=== PATIENT | female | born 1930 | race Caucasian/White ===

== ENCOUNTER 2016-12-18 19:38 | Emergency (ER) | payer MEDICARE, BC ==
--- NOTE | 2016-12-18 20:44 | ER Document Report ---
ED Medical Screen (RME) - General Chief Complaint: Laceration Stated Complaint: FALL/HEAD WOUND Notes: Patient sustained a couple of lacerations to her left scalp when she fell today. It was an unwitnessed fall, but the patient was able to get up and call her daughter who went over to check on her and said she was acting her usual normal self. She does have a couple of lacerations, one in the left parietal scalp that's about 3 cm long and one about 2 cm long in the left occipital scalp region. Patient is hard of hearing, but otherwise, acting normally for her, per the family. TRAVEL OUTSIDE OF THE [place] IN LAST 30 DAYS: No - Related Data Allergies/Adverse Reactions: Sulfa (Sulfonamide Antibiotics) Allergy (Severe, Verified 08/01/16 17:38) Anaphylaxis diphenhydramine HCl [From Benadryl] Allergy (Verified 08/01/16 17:38) Past Medical History Pulmonary Medical History: Reports: Hx Pneumonia Renal/ Medical History: Denies: Hx Peritoneal Dialysis Musculoskeltal Medical History: Reports Hx Arthritis - OSTEOARTHRITIS, WIDESPREAD Past Surgical History: Reports: Hx Tonsillectomy Physical Exam - Vital signs Vitals: Temp Pulse Resp BP Pulse Ox 98.2 F 85 20 187/85 H 99 12/18/16 20:22 12/18/16 20:22 12/18/16 20:22 12/18/16 20:22 12/18/16 20:22 Course - Vital Signs Vital signs: Temp Pulse Resp BP Pulse Ox 98.2 F 85 20 187/85 H 99 12/18/16 20:22 12/18/16 20:22 12/18/16 20:22 12/18/16 20:22 12/18/16 20:22
[2016-12-18] MEDS ORDERED: LIDOCAINE 1%/EPINEPHRINE INJ 20 ML VIAL INJ ONE (21:26)
--- NOTE | 2016-12-18 21:30 | ER Document Report ---
ED Wound - General Chief Complaint: Laceration Stated Complaint: FALL/HEAD WOUND Time seen by provider: 21:20 Notes: Patient is an 86-year-old female that comes emergency department for chief complaint of a mechanical fall with lacerations to her scalp over the top of her head and over the left posterior aspect of the scalp. Patient states she was using a walker and she tripped, losing her balance and falling to the floor , she states she believes she hit her head on her walker. Patient denies chest pain, abdominal pain, pain in her extremities, headache. Patient got up and called her daughter who brought her to the emergency department. She denies loss of consciousness, family members report that she is been acting normally since the fall. No vomiting. Patient is not on a blood thinner. TRAVEL OUTSIDE OF THE [place] IN LAST 30 DAYS: No - Related Data Allergies/Adverse Reactions: Sulfa (Sulfonamide Antibiotics) Allergy (Severe, Verified 08/01/16 17:38) Anaphylaxis diphenhydramine HCl [From Benadryl] Allergy (Verified 08/01/16 17:38) Past Medical History - General Information source: Patient, Relative - Social History Smoking Status: Never Smoker Frequency of alcohol use: None Drug Abuse: None Lives with: Alone Family History: Reviewed & Not Pertinent, Hypertension Pulmonary Medical History: Reports: Hx Pneumonia Renal/ Medical History: Denies: Hx Peritoneal Dialysis Musculoskeltal Medical History: Reports Hx Arthritis - OSTEOARTHRITIS, WIDESPREAD Past Surgical History: Reports: Hx Tonsillectomy - Immunizations Immunizations up to date: Yes Hx Diphtheria, Pertussis, Tetanus Vaccination: Yes Hx Pneumococcal Vaccination: 06/09/10 Review of Systems - Review of Systems Constitutional: No symptoms reported EENT: No symptoms reported Cardiovascular: No symptoms reported Respiratory: No symptoms reported Gastrointestinal: No symptoms reported Genitourinary: No symptoms reported Female Genitourinary: No symptoms reported Musculoskeletal: See HPI Skin: See HPI Hematologic/Lymphatic: No symptoms reported Neurological/Psychological: See HPI Physical Exam - Vital signs Vitals: Temp Pulse Resp BP Pulse Ox 98.2 F 85 20 187/85 H 99 12/18/16 20:22 12/18/16 20:22 12/18/16 20:22 12/18/16 20:22 12/18/16 20:22 Interpretation: Normal - General General appearance: Appears well - Alert, conversational, well-appearing. Hearing impaired but otherwise acting normally In distress: None - HEENT Head: Normocephalic, Open wounds - 3 cm linear laceration at the top/center of the scalp, 2 cm laceration over the left parietal inferior parietal aspect. No : Atraumatic Eyes: Normal Conjunctiva: Normal Extraocular movements intact: Yes Eyelashes: Normal Pupils: PERRL Sinus: Normal Nasal: Normal Mouth/Lips: Normal Mucous membranes: Normal Pharynx: Normal Neck: Normal - Respiratory Respiratory status: No respiratory distress Chest status: Nontender Breath sounds: Normal Chest palpation: Normal - Cardiovascular Rhythm: Regular Heart sounds: Normal auscultation Murmur: No - Abdominal Inspection: Normal Distension: No distension Bowel sounds: Normal Tenderness: Nontender Organomegaly: No organomegaly - Back Back: Normal, Nontender - Extremities General upper extremity: Normal inspection, Nontender, Normal color, Normal ROM , Normal temperature General lower extremity: Normal inspection, Nontender, Normal color, Normal ROM , Normal temperature, Normal weight bearing. No: Magnolia's sign - Neurological Neuro grossly intact: Yes Cognition: Normal Orientation: AAOx4 Samuel Coma Scale Eye Opening: Spontaneous Lawn Coma Scale Verbal: Oriented Samuel Coma Scale Motor: Obeys Commands Lawn Coma Scale Total: 15 Speech: Normal Cranial nerves: Normal Cerebellar coordination: Normal Motor strength normal: LUE, RUE, LLE, RLE Additional motor exam normals: Equal inspector returned materials Sensory: Normal - Psychological Associated symptoms: Normal affect, Normal mood - Skin Skin Temperature: Warm Skin Moisture: Dry Skin Color: Normal Course - Re-evaluation Re-evalutation: CT of the head with no acute abnormalities. Patient alert, cooperative, well- appearing. Patient with 2 lacerations which were cleaned and repaired with jl. Discussed wound care, head injury precautions, follow-up, return precautions with patient and family members. They state understanding and agreement. - Vital Signs Vital signs: Temp Pulse Resp BP Pulse Ox 97.9 F 91 16 166/89 H 97 12/18/16 23:35 12/18/16 23:35 12/18/16 23:35 12/18/16 23:35 12/18/16 23:35 Procedures - Laceration/Wound Repair parietal scalp Wound length (cm): 3 Wound's Depth, Shape: Linear Laceration pre-procedure: Sterile PPE donned, Other - Surgical cleanser Anesthetic type: 1% Lidocaine w/epi - 4 Wound explored: Clean, No foreign body removed Wound Repaired With: Jl Number of Sutures: 3 - jl Layer Closure?: No Post-procedure NV exam normal: Yes Complications: No left occipital scalp Wound length (cm): 1 Wound's Depth, Shape: Linear Laceration pre-procedure: Sterile PPE donned, Other - Surgical cleanser Anesthetic type: 1% Lidocaine w/epi Volume Anesthetic (mLs): 1 Wound explored: Clean, No foreign body removed Wound Repaired With: [place] Number of Sutures: 1 - staple Layer Closure?: No Post-procedure NV exam normal: Yes Complications: No Discharge - Discharge Clinical Impression: Laceration of scalp Qualifiers: Encounter type: initial encounter Qualified Code(s): S01.01XA - Laceration without foreign body of scalp, initial encounter Head injury Qualifiers: Encounter type: initial encounter Qualified Code(s): S09.90XA - Unspecified injury of head, initial encounter Condition: Stable Disposition: HOME, SELF-CARE Additional Instructions: The jl need to come out in about 7 days. Keep the areas clean, clean gently with soap and water. Please follow head injury precautions listed below and return immediately for any concerning symptoms. At this point, there is no evidence that your head injury is serious. Observation is necessary, however. Take only clear liquids for the first few hours, unless told otherwise by the doctor. If no pain medication was prescribed, you may take acetaminophen according to the directions on the bottle. Do not take any medication that may alter your level of alertness (unless you've discussed it with the doctor first) . Limit activity for the first 24 hours. Bed rest is best. During the first 24 hours, check to see approximately every two to three hours that the patient is easily arousable, responds normally, and can perform common tasks such as walking without difficulty. Contact your doctor or go to the hospital if any of the following things occur: Persistent vomiting, difficulty in arousing the patient, worsening or continued headache, or failure to improve as expected. Head injuries can cause symptoms that persist for a few days or even a few weeks. Forms: Elevated Blood Pressure Referrals: ORQUIDEA BOLDEN MD [Primary Care Provider] - Follow up as needed
[2016-12-18 23:45] VITALS: BP 166/89
== END 2016-12-18 23:40 | disposition home or self-care (01) ==
LOC: ER 19:38
PROC: 0HQ0XZZ Repair Scalp Skin, External Approach (ICD-10-PCS; principal; 2016-12-18)
DX: S01.01XA Laceration without foreign body of scalp, initial encounter (principal); S09.90XA Unspecified injury of head, initial encounter; W19.XXXA Unspecified fall, initial encounter
CPT/HCPCS: 99283; 70450; 12002; J3490

== ENCOUNTER 2018-03-25 15:33 | Inpatient (IN) | payer MEDICARE, BC ==
[2018-03-25] MEDS ORDERED: NORMAL SALINE 1000 ML 1,000 ML IV ONE ×2 (15:53→15:54)
[2018-03-25] MEDS ORDERED: AMPICILLIN SOD/SULBACTAM 3 GM VIAL IV ONE (15:54)
--- NOTE | 2018-03-25 16:00 | ER Document Report ---
ED General - General Chief Complaint: Breathing Difficulty Stated Complaint: RIGHT SIDE PAIN Time Seen by Provider: 03/25/18 15:53 Mode of Arrival: Wheelchair Information source: Relative Cannot obtain history due to: Altered mental status Notes: 87-year-old female no previous respiratory issues presents altered and hypoxic by daughter. Patient has been coughing past few days noted that she has not been breathing well, daughter notes at around 2:00 she looks sick but not like she does now, when she went to recheck on her she noted that she was not breathing well at all patient noted to be 60% on O2 sats upon arrival to ED There are notes patient has history of difficulty swallowing TRAVEL OUTSIDE OF THE [place] IN LAST 30 DAYS: No - HPI Onset: Just prior to arrival Onset/Duration: Sudden Quality of pain: No pain Severity: Severe Pain Level: Denies Associated symptoms: Nonproductive cough, Shortness of breath, Slow to respond, Other Exacerbated by: Walking Relieved by: Denies Similar symptoms previously: No Recently seen / treated by doctor: No - Related Data Allergies/Adverse Reactions: Sulfa (Sulfonamide Antibiotics) Allergy (Severe, Verified 03/25/18 15:35) Anaphylaxis diphenhydramine HCl [From Benadryl] Allergy (Verified 03/25/18 15:35) Past Medical History - Social History Smoking Status: Never Smoker Cigarette use (# per day): No Chew tobacco use (# tins/day): No Smoking Education Provided: No Family History: Reviewed & Not Pertinent, Hypertension Pulmonary Medical History: Reports: Hx Pneumonia Renal/ Medical History: Denies: Hx Peritoneal Dialysis Musculoskeletal Medical History: Reports Hx Arthritis - OSTEOARTHRITIS, WIDESPREAD Past Surgical History: Reports: Hx Appendectomy, Hx Tonsillectomy - Immunizations Immunizations up to date: Yes Hx Diphtheria, Pertussis, Tetanus Vaccination: Yes Hx Pneumococcal Vaccination: 06/09/10 Review of Systems - Review of Systems Notes: REVIEW OF SYSTEMS: CONSTITUTIONAL : Denies fever, chills, or sweats. Denies recent illness. EENT: Denies eye, ear, throat, or mouth pain or symptoms. Denies nasal or sinus congestion or discharge. Denies throat, tongue, or mouth swelling or difficulty swallowing. CARDIOVASCULAR: Denies chest pain. Denies palpitations or racing or irregular heart beat. Denies ankle edema. RESPIRATORY: Difficulty breathing GASTROINTESTINAL: Denies abdominal pain or distention. Denies nausea, vomiting , or diarrhea. Denies blood in vomitus, stools, or per rectum. Denies black, tarry stools. Denies constipation. GENITOURINARY: Denies difficulty urinating, painful urination, burning, frequency, blood in urine, or discharge. FEMALE GENITOURINARY: Denies vaginal bleeding, heavy or abnormal periods, irregular periods. Denies vaginal discharge or odor. MUSCULOSKELETAL: Denies back or neck pain or stiffness. Denies joint pain or swelling. SKIN: Denies rash, lesions or sores. HEMATOLOGIC : Denies easy bruising or bleeding. LYMPHATIC: Denies swollen, enlarged glands. NEUROLOGICAL: Confusion PSYCHIATRIC: Denies anxiety or stress. Denies depression, suicidal ideation, or homicidal ideation. ALL OTHER SYSTEMS REVIEWED AND NEGATIVE. PHYSICAL EXAMINATION: GENERAL: Ill-appearing female HEAD: Atraumatic, normocephalic. EYES: Pupils equal round and reactive to light, extraocular movements intact, conjunctiva are normal. ENT: Nares patent, oropharynx clear without exudates. Moist mucous membranes. NECK: Normal range of motion, supple without lymphadenopathy LUNGS: Rhonchorous all throughout. HEART: Tachycardic ABDOMEN: Soft, nontender, nondistended abdomen. No guarding, no rebound. No masses appreciated. Female : deferred Musculoskeletal: Normal range of motion, no pitting or edema. No cyanosis. NEUROLOGICAL: Cranial nerves grossly intact. Normal speech, normal gait. Normal sensory, motor exams PSYCH: Normal mood, normal affect. SKIN: Warm, Dry, normal turgor, no rashes or lesions noted. Dictation was performed using [employer] voice recognition software Physical Exam - Vital signs Vitals: Temp Pulse Resp BP Pulse Ox 99.4 F 122 H 20 86/49 L 60 L 03/25/18 15:41 03/25/18 15:41 03/25/18 15:41 03/25/18 15:41 03/25/18 15:41 Course - Re-evaluation Re-evalutation: 03/25/18 15:59 Patient immediately placed on nonrebreather, O2 sats went from 60% to 89%, BiPAP ordered. Patient started to become more responsive, daughter notes she is a DNR but they do not have any paperwork - Vital Signs Vital signs: Temp Pulse Resp BP Pulse Ox 99.4 F 122 H 21 H 120/80 100 03/25/18 15:41 03/25/18 15:41 03/25/18 16:45 03/25/18 16:43 03/25/18 16:45 - Laboratory Result Diagrams: 03/25/18 15:50 03/25/18 15:50 Laboratory results interpreted by me: 03/25/18 03/25/18 03/25/18 15:50 15:50 15:50 WBC 0.9 L* RBC 3.27 L Hgb 9.9 L Hct 29.8 L RDW 15.2 H Seg Neutrophils % 84.1 H Monocytes % 0.7 L Absolute Neutrophils 0.8 L Absolute Lymphocytes 0.1 L Absolute Monocytes 0.0 L BUN 68 H Creatinine 2.05 H Est GFR ( Amer) 28 L Est GFR (Non-Af Amer) 23 L Glucose 55 L POC Glucose Lactic Acid 4.4 H Direct Bilirubin 0.5 H Total Protein 5.7 L Albumin 2.8 L 03/25/18 15:51 WBC RBC Hgb Hct RDW Seg Neutrophils % Monocytes % Absolute Neutrophils Absolute Lymphocytes Absolute Monocytes BUN Creatinine Est GFR ( Amer) Est GFR (Non-Af Amer) Glucose POC Glucose 64 L Lactic Acid Direct Bilirubin Total Protein Albumin Discharge - Discharge Clinical Impression: Pneumonia Qualifiers: Pneumonia type: aspiration pneumonia Aspiration pneumonia type: unspecified Laterality: bilateral Lung location: lower lobe of lung Qualified Code(s): J69.0 - Pneumonitis due to inhalation of food and vomit Condition: Fair Disposition: ADMITTED INPATIENT Admitting Provider: Hospitalist Unit Admitted: ICU Referrals: ORQUIDEA BOLDEN MD [ASSOCIATE] - Follow up as needed
[2018-03-25 16:03] LABS: VENOUS BLOOD BASE EXCESS -0.4 mmol/L; VENOUS BLOOD HCO3 25.7 mmol/L (20-32); VENOUS BLOOD PCO2 48.2 mmHg (35-63); VENOUS BLOOD PH 7.35 (7.30-7.42)
[2018-03-25 16:10] LABS: PROTHROMBIN TIME 14.8 SEC (11.4-15.4)
[2018-03-25 16:13] LABS: ABSOLUTE LYMPHOCYTES (AUTO) 0.1 10^3/uL (0.5-4.7); ABSOLUTE NEUT (AUTO) 0.8 10^3/uL (1.7-8.2); EOSINOPHILS % (AUTO) 0.3 % (0-6); HEMATOCRIT 29.8 % (36.0-47.0); HEMOGLOBIN 9.9 g/dL (12.0-15.5); LYMPHOCYTES % (AUTO) 14.9 % (13-45); MEAN CORPUSCULAR HEMOGLOBIN 30.3 pg (27.0-33.4); MEAN CORPUSCULAR HGB CONC 33.2 g/dL (32.0-36.0); MEAN CORPUSCULAR VOLUME 91 fl (80-97); MONOCYTES % (AUTO) 0.7 % (3-13); PLATELET COUNT 297 10^3/uL (150-450); RED BLOOD COUNT 3.27 10^6/uL (3.72-5.28); RED CELL DISTRIBUTION WIDTH 15.2 % (11.5-14.0); SEGMENTED NEUTROPHILS % (AUTO) 84.1 % (42-78); TOTAL CELLS COUNTED % (AUTO) 100 %
--- NOTE | 2018-03-25 16:15 | RADIOLOGY REPORT (SQ) ---
EXAM DESCRIPTION: CHEST SINGLE VIEW COMPLETED DATE/TIME: 03/25/2018 4:01 pm REASON FOR STUDY: hypoxemia COMPARISON: Chest films 08/02/2016, 06/17/2013 EXAM PARAMETERS: NUMBER OF VIEWS: One view. TECHNIQUE: Single frontal radiographic view of the chest acquired. RADIATION DOSE: NA LIMITATIONS: None. FINDINGS: LUNGS AND PLEURA: Bilateral lower lobe airspace disease is present, worrisome for pneumoni a. Trace left pleural effusion could not be excluded. No pneumothorax. MEDIASTINUM AND HILAR STRUCTURES: No masses. Contour normal. HEART AND VASCULAR STRUCTURES: Mild cardiomegaly BONES: No acute findings. HARDWARE: None in the chest. OTHER: No other significant finding. IMPRESSION: Bilateral lower lobe airspace disease is present left greater than right worrisome for p neumonia. Trace left pleural effusion present. TECHNICAL DOCUMENTATION: JOB ID: [id number] [email or web address]- All Rights Reserved Reading location - IP/workstation name: [email or web address]
[2018-03-25 16:36] LABS: WHITE BLOOD COUNT 0.9 10^3/uL (4.0-10.5)
[2018-03-25 16:37] LABS: ANISOCYTOSIS SLIGHT; OVALOCYTES SLIGHT; PLATELET CLUMPS PRESENT; PLATELET COMMENT ADEQUATE; POIKILOCYTOSIS SLIGHT
[2018-03-25 16:59] LABS: BLOOD UREA NITROGEN 68 mg/dL (7-20); CALCIUM 9.2 mg/dL (8.4-10.2); GLUCOSE 55 mg/dL (75-110)
[2018-03-25 17:00] LABS: ALANINE AMINOTRANSFERASE 25 U/L (9-52); ALBUMIN 2.8 g/dL (3.5-5.0); ALKALINE PHOSPHATASE 72 U/L (38-126); ANION GAP 16 (5-19); ASPARTATE AMINO TRANSFERASE 34 U/L (14-36); BILIRUBIN,DIRECT 0.5 mg/dL (0.0-0.4); BILIRUBIN,TOTAL 0.5 mg/dL (0.2-1.3); CARBON DIOXIDE 24 mmol/L (22-30); CHLORIDE 100 mmol/L (98-107); POTASSIUM 4.4 mmol/L (3.6-5.0); SODIUM 139.5 mmol/L (137-145); TOTAL PROTEIN 5.7 g/dL (6.3-8.2)
[2018-03-25] MEDS ORDERED: DEXTROSE 50%-WATER 25 GM/50 ML DISP.SYRIN IV ONE ×2 (17:08)
[2018-03-25 17:57] LABS: APPEARANCE,URINE CLOUDY; BILIRUBIN,URINE NEGATIVE (NEGATIVE); CALCIUM OXALATE CRYSTALS,URINE RARE /HPF; COLOR,URINE AMBER; GLUCOSE, URINE NEGATIVE (NEGATIVE); KETONES,URINE NEGATIVE (NEGATIVE); LEUKOCYTE ESTERASE,URINE NEGATIVE (NEGATIVE); NITRITE,URINE POSITIVE (NEGATIVE); PROTEIN,URINE 30 mg/dL (NEGATIVE); URINE SPECIFIC GRAVITY 1.014; UROBILINOGEN,URINE NEGATIVE mg/dL (<2.0)
--- NOTE | 2018-03-25 18:56 | PDOC H&P ---
History of Present Illness Admission Date/PCP: 03/25/18 17:40 SARA HERNANDEZ MD Patient complains of: Shortness of breath, weakness, right sided chest pain. 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 The patient was brought to the ED by her daughters today due to severe shortness of breath and weakness. They state that the patient has been less active and weaker than usual in the last couple of weeks. The state that she has been very much less active and weaker since Sunday. One daughter who visited her on that date states that she seemed to have increased shortness of breath and a congested sounding cough on that date. They also states that her usual aches and pains have been bothering her more lately. The patient was found to be hypoxic with an SaO2 in the 60's on room air. She only came up to 89% on 100% non-rebreather. The ED physician placed her on BIPAP as the patient is a DNR. She is also found to be septic and will receive 2L IV fluid as part of the sepsis protocol. While in the room the patient who had previously been in sinus rhythm went into atrial fibrillation. 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 Musculoskeltal Medical History: Reports: Arthritis - OSTEOARTHRITIS, WIDESPREAD Past Surgical History Past Surgical History: Reports: Appendectomy, Tonsillectomy Social History Smoking Status: Never Smoker Frequency of Alcohol Use: None Hx Recreational Drug Use: No Drugs: None Hx Prescription Drug Abuse: No Family History Family History: Reviewed & Not Pertinent, Hypertension Parental Family History Reviewed: Yes Children Family History Reviewed: Yes Sibling(s) Family History Reviewed.: Yes Medication/Allergy Home Medications: Folic Acid [Folvite 1 mg Tablet] 1 mg PO DAILY 03/25/18 Oxycodone HCl/Acetaminophen [Endocet 7.5-325 mg Tablet] 1 tab PO Q8HP PRN Ranitidine HCl [Zantac] 300 mg PO DAILY 03/25/18 Allergies/Adverse Reactions: Sulfa (Sulfonamide Antibiotics) Allergy (Severe, Verified 03/25/18 15:35) Anaphylaxis diphenhydramine HCl [From Benadryl] Allergy (Verified 03/25/18 15:35) Review of Systems ROS unobtainable: Other - Due to BIPAP Physical Exam Vital Signs: Temp Pulse Resp BP Pulse Ox 99.4 F 122 H 19 111/59 L 97 03/25/18 15:41 03/25/18 15:41 03/25/18 18:01 03/25/18 18:01 03/25/18 18:01 General appearance: PRESENT: mild distress, thin, other - The patient is on bipap. She appears acutely ill. She is unable to cooperate with history due to bipap and acute illness. Head exam: PRESENT: atraumatic, normocephalic Eye exam: PRESENT: EOMI, PERRLA, other - No scleral injection.. ABSENT: scleral icterus Ear exam: PRESENT: other - Chronically hard of hearing. Hearing aide in right ear.. ABSENT: bleeding, drainage Mouth exam: PRESENT: other - Unable to evaluate due to BIPAP. Throat exam: PRESENT: other - Unable to evaluate due to BIPAP. Neck exam: PRESENT: full ROM, thyromegaly. ABSENT: JVD, lymphadenopathy, tenderness, tracheal deviation Respiratory exam: PRESENT: other - Positive for increased work of breathing. Breath sounds are diminished and difficult to auscultate over the BIPAP. Positive for rales. Cardiovascular exam: PRESENT: systolic murmur, other - Irregularly irregular.. ABSENT: gallop, rubs Pulses: PRESENT: other - Diminished distal pulses. GI/Abdominal exam: PRESENT: normal bowel sounds, soft. ABSENT: distended, hernia, mass, tenderness Extremities exam: PRESENT: full ROM. ABSENT: tenderness, +1 edema Neurological exam: PRESENT: alert, altered, awake, other - Able to follow commands. Psychiatric exam: PRESENT: other - Unable to evaluate due to patient's acute illness and bipap. Skin exam: PRESENT: dry, intact, warm Results Laboratory Results: 03/25/18 03/25/18 03/25/18 15:50 15:50 15:50 WBC 0.9 L* Hgb 9.9 L Hct 29.8 L Plt Count 297 PT 14.8 INR 1.10 VBG pH VBG pCO2 VBG HCO3 VBG Base Excess Sodium 139.5 Potassium 4.4 Chloride 100 Carbon Dioxide 24 Anion Gap 16 BUN 68 H Creatinine 2.05 H Est GFR (Non-Af Amer) 23 L Glucose 55 L POC Glucose Lactic Acid Calcium 9.2 Total Bilirubin 0.5 Direct Bilirubin 0.5 H AST 34 ALT 25 Alkaline Phosphatase 72 Total Protein 5.7 L Albumin 2.8 L Urine Color Urine Appearance Urine pH Ur Specific Anderson Urine Protein Urine Blood Urine Nitrite 03/25/18 03/25/18 03/25/18 15:50 15:50 15:51 WBC Hgb Hct Plt Count PT INR VBG pH 7.35 VBG pCO2 48.2 VBG HCO3 25.7 VBG Base Excess -0.4 Sodium Potassium Chloride Carbon Dioxide Anion Gap BUN Creatinine Est GFR (Non-Af Amer) Glucose POC Glucose 64 L Lactic Acid 4.4 H Calcium Total Bilirubin Direct Bilirubin AST ALT Alkaline Phosphatase Total Protein Albumin Urine Color Urine Appearance Urine pH Ur Specific Anderson Urine Protein Urine Blood Urine Nitrite 03/25/18 17:13 WBC Hgb Hct Plt Count PT INR VBG pH VBG pCO2 VBG HCO3 VBG Base Excess Sodium Potassium Chloride Carbon Dioxide Anion Gap BUN Creatinine Est GFR (Non-Af Amer) Glucose POC Glucose Lactic Acid Calcium Total Bilirubin Direct Bilirubin AST ALT Alkaline Phosphatase Total Protein Albumin Urine Color LISA Urine Appearance CLOUDY Urine pH 5.0 Ur Specific Anderson 1.014 Urine Protein 30 H Urine Blood MODERATE H Urine Nitrite POSITIVE H Impressions: Chest X-Ray 03/25/18 15:53 IMPRESSION: Bilateral lower lobe airspace disease is present left greater than right worrisome for pneumonia. Trace left pleural effusion present. Assessment & Plan - Diagnosis (1) Acute respiratory failure with hypoxia Is this a current diagnosis for this admission?: Yes Plan: The patient is a DNR. She is currently requiring support with BIPAP and high flow O2. Monitor. She will be admitted to the ICU overnight. (2) Atrial fibrillation with rapid ventricular response Is this a current diagnosis for this admission?: Yes Plan: New diagnosis for this patient. Will attempt to control rate with a one time dose of 5 mg diltiazem. If necessary will place on a drip. Caution must be used due to the patient's sepsis and tenuous blood pressure. I have also placed her on 1mg/kg lovenox. 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 She has had aspiration pneumonia before. The patient will be placed on cefepime and azithromycin. This should cover her for gram negative's as well as anaerobic organisms. Blood cultures and sputum cultures have been ordered. (4) Acute kidney injury Is this a current diagnosis for this admission?: Yes Plan: Due to sepsis. The patient is receiving aggressive IV fluid resuscitation. Monitor the renal status and electrolytes. Avoid nephrotoxic agents. (5) Deafness Qualifiers: Laterality: bilateral Qualified Code(s): H91.93 - Unspecified hearing loss , bilateral Is this a current diagnosis for this admission?: Yes Plan: Noted. (6) Osteoporosis Qualifiers: Osteoporosis type: unspecified Presence of current pathological fracture: without current pathological fracture Qualified Code(s): M81.0 - Age-related osteoporosis without current pathological fracture Is this a current diagnosis for this admission?: Yes Plan: Pain control as possible. Currently limited due to the patient's tenuous blood pressures are requirement for diltiazem to control heart rate. NSAIDS are to be avoided due to SKYLAR. (7) Sepsis Qualifiers: Sepsis type: sepsis due to unspecified organism Qualified Code(s): A41.9 - Sepsis, unspecified organism Is this a current diagnosis for this admission?: Yes Plan: Sepsis protocol, blood cultures drawn. Serial lactic acids. IV fluid resuscitation. IV antibiotics. (8) UTI (urinary tract infection) Qualifiers: Urinary tract infection type: acute cystitis Hematuria presence: without hematuria Qualified Code(s): N30.00 - Acute cystitis without hematuria Is this a current diagnosis for this admission?: Yes Plan: Urine culture and IV antibiotics. (9) Toxic metabolic encephalopathy Is this a current diagnosis for this admission?: Yes Plan: Treating sepsis, pneumonia, and UTI. Monitor. - Time Time Spent: Greater than 70 Minutes Critical Time spent with patient: 35 or more minutes Medications reviewed and adjusted accordingly: Yes - Inpatient Certification Based on my medical assessment, after consideration of the patient's comorbidities, presenting symptoms, or acuity I expect that the services needed warrant INPATIENT care.: Yes I certify that my determination is in accordance with my understanding of Medicare's requirements for reasonable and necessary INPATIENT services [42 CFR 412.3e].: Yes Medical Necessity: Need Close Monitoring Due to Risk of Patient Decompensation, Need For IV Fluids, Need For Continuous Telemetry Monitoring, Need for IV Antibiotics
[2018-03-25] MEDS ORDERED: DILTIAZEM HCL INJ 25 MG/5 ML VIAL ONE (19:12)
--- NOTE | 2018-03-25 19:24 | EKG REPORT ---
SEVERITY:- ABNORMAL ECG - ATRIAL FIBRILLATION, V-RATE 90-163 PROBABLE INFERIOR INFARCT, AGE INDETERMINATE ANTERIOR INFARCT, OLD BORDERLINE PROLONGED QT INTERVAL : Confirmed by: Tamir Guzman 25-Mar-2018 19:23:13
--- NOTE | 2018-03-25 19:24 | EKG REPORT ---
SEVERITY:- ABNORMAL ECG - SINUS TACHYCARDIA PROBABLE LEFT ATRIAL ABNORMALITY PROBABLE INFERIOR INFARCT, OLD ANTERIOR INFARCT, AGE INDETERMINATE : Confirmed by: Tamir Guzman 25-Mar-2018 19:23:28
[2018-03-25] MEDS ORDERED: CEFEPIME 1 GM/D5W RTU 1 GM/50 ML RTUPB IV ONE (19:30)
[2018-03-25] MEDS ORDERED: DILTIAZEM HCL INJ 25 MG/5 ML VIAL IV ONE (19:30)
[2018-03-25] MEDS: AZITHROMYCIN 500 MG in DEXTROSE 5%-WATER 250 ML IV SCH (22:00)
[2018-03-25] MEDS ORDERED: CEFEPIME 2 GM/D5W RTU 50 ML IV SCH (22:00)
[2018-03-25] MEDS: ENOXAPARIN SODIUM INJ 60 MG/0.6 ML DISP.SYRIN SUBCUT SCH (22:01)
[2018-03-25] MEDS: MORPHINE SULFATE 10 MG/ML INJ IV PRN (22:36)
[2018-03-26] MEDS ORDERED: HALOPERIDOL LACTATE INJ 5 MG/1 ML VIAL ONE (00:32)
[2018-03-26] MEDS ORDERED: NORMAL SALINE 1000 ML 1,000 ML IV PRN (00:34)
[2018-03-26] MEDS ORDERED: HALOPERIDOL LACTATE INJ 5 MG/1 ML VIAL IV ONE (00:45)
[2018-03-26] MEDS ORDERED: ZIPRASIDONE MESYLATE INJ/PF 20 MG SDV IM ONE (02:00)
[2018-03-26 04:03] LABS: HEMATOCRIT 27.6 % (36.0-47.0); HEMOGLOBIN 9.4 g/dL (12.0-15.5); MEAN CORPUSCULAR HEMOGLOBIN 31.1 pg (27.0-33.4); MEAN CORPUSCULAR HGB CONC 34.2 g/dL (32.0-36.0); MEAN CORPUSCULAR VOLUME 91 fl (80-97); PLATELET COUNT 230 10^3/uL (150-450); RED BLOOD COUNT 3.03 10^6/uL (3.72-5.28); RED CELL DISTRIBUTION WIDTH 15.4 % (11.5-14.0); WHITE BLOOD COUNT 1.8 10^3/uL (4.0-10.5)
[2018-03-26 04:08] LABS: ANION GAP 13 (5-19); BLOOD UREA NITROGEN 62 mg/dL (7-20); CARBON DIOXIDE 24 mmol/L (22-30); CHLORIDE 105 mmol/L (98-107); GLUCOSE 50 mg/dL (75-110); POTASSIUM 4.1 mmol/L (3.6-5.0); SODIUM 141.6 mmol/L (137-145)
[2018-03-26 04:34] LABS: CALCIUM 8.3 mg/dL (8.4-10.2)
[2018-03-26 05:20] LABS: ABSOLUTE LYMPHOCYTES# (MANUAL) 0.1 10^3/uL (0.5-4.7); BASOPHILS % (MANUAL) 0 % (0-2); EOSINOPHILS % (MANUAL) 0 % (0-6); LYMPHOCYTES % (MANUAL) 6 % (13-45); TOTAL CELLS COUNTED 50
[2018-03-26 05:24] LABS: PLATELET COMMENT ADEQUATE
[2018-03-26 07:47] LABS: ABSOLUTE MONOCYTES # (MANUAL) 0.3 10^3/uL (0.1-1.4); ABSOLUTE NEUTROPHILS# (MANUAL) 1.4 10^3/uL (1.7-8.2); METAMYELOCYTES % (MANUAL) 2 % (0); MONOCYTES % (MANUAL) 16 % (3-13); SEGMENTED NEUTROPHILS % (MAN) 42 % (42-78)
[2018-03-26 07:48] LABS: ANISOCYTOSIS SLIGHT; BAND NEUTROPHILS % (MANUAL) 34 % (3-5); BURR CELLS 1+; OVALOCYTES SLIGHT; POIKILOCYTOSIS 1+
[2018-03-26 08:11] LABS: ARTERIAL BLOOD BASE EXCESS -2.9 mmol/L; ARTERIAL BLOOD FIO2 70%; ARTERIAL BLOOD H2CO3 1.36 mmol/L (1.05-1.35); ARTERIAL BLOOD O2 SATURATION 98.8 % (94-98); ARTERIAL BLOOD PCO2 45.2 mmHg (35-45); ARTERIAL BLOOD PH 7.33 (7.35-7.45); ARTERIAL BLOOD PO2 151.6 mmHg (80-100); ARTERIAL BLOOD TOTAL CO2 24.4 mmol/L (21-25)
[2018-03-26] MEDS ORDERED: DEXTROSE 10%-WATER 1,000 ML IV PRN (09:07)
[2018-03-26] MEDS ORDERED: DEXTROSE 50%-WATER 25 GM/50 ML DISP.SYRIN IV ONE ×2 (09:07→09:10)
[2018-03-26 10:50] LABS: PATH REVIEW PATHOLOGIST REVIEWED
[2018-03-26 10:50] LABS: PATH REVIEW PATHOLOGIST REVIEWED
[2018-03-26] MEDS: ENOXAPARIN SODIUM INJ 60 MG/0.6 ML DISP.SYRIN SUBCUT SCH ×2 (11:08→22:06)
[2018-03-26] MEDS ORDERED: DILTIAZEM HCL 30 MG TABLET PO ONE (14:30)
[2018-03-26] MEDS ORDERED: GLUCAGON,HUMAN RECOMB 1 MG INJ IM PRN (15:42)
[2018-03-26] MEDS ORDERED: DEXTROSE 40% GEL 15 GM TUBE PO PRN ×2 (15:42)
[2018-03-26] MEDS ORDERED: DEXTROSE 50%-WATER 25 GM/50 ML DISP.SYRIN IV PRN ×2 (15:42)
--- NOTE | 2018-03-26 15:51 | PDOC PROGRESS REPORT ---
Subjective Progress Note for:: 03/26/18 Subjective:: The patient has had a very restless night and has required geodon to control her agitation. Otherwise she seems improved with Oxygen saturations of 100% on 70% on BIPAP. She is awake and is trying to communicate with me. Reason For Visit: ACUTE HYPOXIC RESPIRATORY FAILURE,PNEUMONIA,ATRIAL Physical Exam Vital Signs: Temp Pulse Resp BP Pulse Ox 96.4 F L 118 H 20 145/77 H 96 03/26/18 12:00 03/26/18 12:00 03/26/18 13:03 03/26/18 13:03 03/26/18 14:00 Intake & Output 03/25/18 03/26/18 03/27/18 06:59 06:59 06:59 Output Total 800 250 Balance -800 -250 Weight 51.7 kg General appearance: PRESENT: mild distress - The patient is agitated and is trying to communicate with me with BIPAP mask on., thin, other - The patient appears elderly, weak, and frail. Respiratory exam: PRESENT: other - BIPAP in place making auscultation of lung sounds difficult.. ABSENT: rales, rhonchi, wheezes Cardiovascular exam: PRESENT: other - Irregularly irregular.. ABSENT: diastolic murmur, rubs, systolic murmur Pulses: PRESENT: other - Diminished distal pulses. Vascular exam: PRESENT: normal capillary refill GI/Abdominal exam: PRESENT: hypoactive bowel sounds, soft. ABSENT: distended, guarding, mass, organolmegaly, rebound, tenderness Extremities exam: PRESENT: full ROM. ABSENT: calf tenderness, clubbing, pedal edema Neurological exam: PRESENT: alert, awake, CN II-XII grossly intact. ABSENT: motor sensory deficit Psychiatric exam: PRESENT: agitated, anxious Skin exam: PRESENT: dry, intact, warm. ABSENT: cyanosis, rash Results Laboratory Results: 03/26/18 03:50 03/26/18 03:50 03/25/18 03/26/18 03/26/18 19:40 00:16 03:50 WBC 1.8 L RBC 3.03 L Hgb 9.4 L Hct 27.6 L MCV 91 MCH 31.1 MCHC 34.2 RDW 15.4 H Plt Count 230 Seg Neutrophils % Not Reportable Lymphocytes % Not Reportable Monocytes % Not Reportable Eosinophils % Not Reportable Basophils % Not Reportable Absolute Neutrophils Not Reportable Absolute Lymphocytes Not Reportable Absolute Monocytes Not Reportable Absolute Eosinophils Not Reportable Absolute Basophils Not Reportable Carbonic Acid HCO3/H2CO3 Ratio ABG pH ABG pCO2 ABG pO2 ABG HCO3 ABG O2 Saturation ABG Base Excess FiO2 Sodium Potassium Chloride Carbon Dioxide Anion Gap BUN Creatinine Est GFR ( Amer) Est GFR (Non-Af Amer) Glucose Lactic Acid 2.6 H 2.4 H Calcium 03/26/18 03/26/18 03:50 07:55 WBC RBC Hgb Hct MCV MCH MCHC RDW Plt Count Seg Neutrophils % Lymphocytes % Monocytes % Eosinophils % Basophils % Absolute Neutrophils Absolute Lymphocytes Absolute Monocytes Absolute Eosinophils Absolute Basophils Carbonic Acid 1.36 H HCO3/H2CO3 Ratio 16:1 ABG pH 7.33 L ABG pCO2 45.2 H ABG pO2 151.6 H ABG HCO3 23.0 ABG O2 Saturation 98.8 H ABG Base Excess -2.9 FiO2 70% Sodium 141.6 Potassium 4.1 Chloride 105 Carbon Dioxide 24 Anion Gap 13 BUN 62 H Creatinine 1.96 H Est GFR ( Amer) 29 L Est GFR (Non-Af Amer) 24 L Glucose 50 L Lactic Acid Calcium 8.3 L 03/25/18 03/26/18 19:40 03:50 Troponin I 0.054 0.126 Impressions: Chest X-Ray 03/25/18 15:53 IMPRESSION: Bilateral lower lobe airspace disease is present left greater than right worrisome for pneumonia. Trace left pleural effusion present. Assessment & Plan - Diagnosis (1) Acute respiratory failure with hypoxia Is this a current diagnosis for this admission?: Yes Plan: ABG appears much improved. BIPAP will be discontinued and the patient will be placed on 2L by ut. Will monitor and adjust FIO2 as necessary. (2) Atrial fibrillation with rapid ventricular response Is this a current diagnosis for this admission?: Yes Plan: IV diltiazem and 1mg/kg lovenox. 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 She has had aspiration pneumonia before. The patient will be placed on cefepime and azithromycin. This should cover her for gram negative's as well as anaerobic organisms. Blood cultures and sputum cultures have been ordered and are pending. (4) Acute kidney injury Is this a current diagnosis for this admission?: Yes Plan: Assumed to be due to sepsis, but creatinine is less improved since admission than I would have anticipated. Continue IV fluids and to monitor. Avoid nephrotoxic agents. (5) Deafness Qualifiers: Laterality: bilateral Qualified Code(s): H91.93 - Unspecified hearing loss , bilateral Is this a current diagnosis for this admission?: Yes Plan: Noted. (6) Osteoporosis Qualifiers: Osteoporosis type: unspecified Presence of current pathological fracture: without current pathological fracture Qualified Code(s): M81.0 - Age-related osteoporosis without current pathological fracture Is this a current diagnosis for this admission?: Yes Plan: Pain control as possible. Limited due to low blood pressures. (7) Sepsis Qualifiers: Sepsis type: sepsis due to unspecified organism Qualified Code(s): A41.9 - Sepsis, unspecified organism Is this a current diagnosis for this admission?: Yes Plan: Sepsis protocol, blood cultures drawn. Serial lactic acids. IV fluid resuscitation. IV antibiotics. (8) UTI (urinary tract infection) Qualifiers: Urinary tract infection type: acute cystitis Hematuria presence: without hematuria Qualified Code(s): N30.00 - Acute cystitis without hematuria Is this a current diagnosis for this admission?: Yes Plan: Gram negative rods grown out of urine. IV fluids and IV antibiotics. (9) Toxic metabolic encephalopathy Is this a current diagnosis for this admission?: Yes Plan: Treating sepsis, pneumonia, and UTI. Monitor. Geodon as necessary for agitation. (10) Hypoglycemia Is this a current diagnosis for this admission?: Yes Plan: D 10 and hypoglycemic protocol. Pt's mental status currently precludes the initiation of a diet. - Time Time Spent with patient: 35 or more minutes Medications reviewed and adjusted accordingly: Yes Anticipated discharge: SNF - Inpatient Certification Based on my medical assessment, after consideration of the patient's comorbidities, presenting symptoms, or acuity I expect that the services needed warrant INPATIENT care.: Yes I certify that my determination is in accordance with my understanding of Medicare's requirements for reasonable and necessary INPATIENT services [42 CFR 412.3e].: Yes Medical Necessity: Need For IV Fluids, Need For Continuous Telemetry Monitoring , Need for IV Antibiotics, Risk of Diagnosis Which Will Require Inpatient Eval/ Care/Monitoring
[2018-03-26] MEDS: CEFEPIME 1 GM/D5W RTU 1 GM/50 ML RTUPB IV SCH (17:05)
[2018-03-26] MEDS ORDERED: (PENDING PHARMACY ID) (Oxycodone Hcl/Acetaminophen [Endocet 7.5-325 Mg Tablet] 1 TAB) PO PRN (18:50)
[2018-03-26] MEDS: DILTIAZEM HCL/D5W 125 MG/125 ML RTUINJ IV PRN (20:06)
[2018-03-26] MEDS ORDERED: OXYCODONE-ACETAMINOPHEN 5-325 MG TABLET PO PRN (21:21)
[2018-03-26] MEDS ORDERED: OXYCODONE HCL IR 5 MG TABLET PO PRN (21:22)
[2018-03-26] MEDS ORDERED: DILTIAZEM HCL 30 MG TABLET PO SCH (22:00)
[2018-03-26] MEDS ORDERED: FAMOTIDINE 20 MG TABLET PO SCH (22:00)
[2018-03-26] MEDS: AZITHROMYCIN 500 MG in DEXTROSE 5%-WATER 250 ML IV SCH (22:05)
[2018-03-26] MEDS: MORPHINE SULFATE 10 MG/ML INJ IV PRN (22:06)
[2018-03-27] MEDS: DEXTROSE 10%-WATER 1,000 ML IV PRN ×2 (03:23→19:05)
[2018-03-27 04:07] LABS: HEMATOCRIT 25.8 % (36.0-47.0); HEMOGLOBIN 8.7 g/dL (12.0-15.5); MEAN CORPUSCULAR HEMOGLOBIN 30.7 pg (27.0-33.4); MEAN CORPUSCULAR HGB CONC 33.8 g/dL (32.0-36.0); MEAN CORPUSCULAR VOLUME 91 fl (80-97); PLATELET COUNT 173 10^3/uL (150-450); RED BLOOD COUNT 2.84 10^6/uL (3.72-5.28); RED CELL DISTRIBUTION WIDTH 15.3 % (11.5-14.0)
[2018-03-27 04:09] LABS: WHITE BLOOD COUNT 9.6 10^3/uL (4.0-10.5)
[2018-03-27 04:15] LABS: ANION GAP 12 (5-19); BLOOD UREA NITROGEN 59 mg/dL (7-20); CALCIUM 7.8 mg/dL (8.4-10.2); CARBON DIOXIDE 22 mmol/L (22-30); CHLORIDE 103 mmol/L (98-107); GLUCOSE 98 mg/dL (75-110); POTASSIUM 3.6 mmol/L (3.6-5.0); SODIUM 137.3 mmol/L (137-145)
[2018-03-27 06:45] LABS: ARTERIAL BLOOD H2CO3 1.85 mmol/L (1.05-1.35); ARTERIAL BLOOD HCO3 24.3 mmol/L (20-26); ARTERIAL BLOOD O2 SATURATION 97.1 % (94-98); ARTERIAL BLOOD PCO2 61.6 mmHg (35-45); ARTERIAL BLOOD PH 7.21 (7.35-7.45); ARTERIAL BLOOD PO2 111.9 mmHg (80-100); ARTERIAL BLOOD TOTAL CO2 26.1 mmol/L (21-25)
[2018-03-27 06:49] LABS: ARTERIAL BLOOD FIO2 50%
[2018-03-27] MEDS: ENOXAPARIN SODIUM INJ 60 MG/0.6 ML DISP.SYRIN SUBCUT SCH (09:59)
[2018-03-27] MEDS ORDERED: (PENDING PHARMACY ID) (Ranitidine Hcl [Zantac] 300 MG) PO SCH (10:00)
[2018-03-27] MEDS: NORMAL SALINE 1000 ML 1,000 ML IV PRN (10:00)
[2018-03-27] MEDS ORDERED: FOLIC ACID 1 MG TABLET PO SCH (10:00)
--- NOTE | 2018-03-27 10:10 | RADIOLOGY REPORT (SQ) ---
EXAM DESCRIPTION: CHEST SINGLE VIEW COMPLETED DATE/TIME: 03/27/2018 9:59 am REASON FOR STUDY: difficulty breathing COMPARISON: 03/25/2018, 08/02/2016, 08/01/2016 EXAM PARAMETERS: NUMBER OF VIEWS: One view. TECHNIQUE: Single frontal radiographic view of the chest acquired. RADIATION DOSE: NA LIMITATIONS: None. FINDINGS: LUNGS AND PLEURA: Dense alveolar infiltrates are present in the right lower lobe and left perihilar region, worrisome for pulmonary edema. Pneumonia or ARDS could mimic this appearance. No right pleural effusion. Question trace left pleural effusion. No pneumothorax MEDIASTINUM AND HILAR STRUCTURES: No masses. Contour normal. HEART AND VASCULAR STRUCTURES: Stable cardiomegaly BONES: No acute findings. HARDWARE: None in the chest. OTHER: No other significant finding. IMPRESSION: New dense alveolar infiltrates in the right lower lobe and left perihilar region, worris ome for pulmonary edema or pneumonia. TECHNICAL DOCUMENTATION: JOB ID: [id number] [employer]- All Rights Reserved Reading location - IP/workstation name: [email or web address]
[2018-03-27 10:20] LABS: ARTERIAL BLOOD BASE EXCESS -3.3 mmol/L; ARTERIAL BLOOD H2CO3 1.79 mmol/L (1.05-1.35); ARTERIAL BLOOD HCO3 24.6 mmol/L (20-26); ARTERIAL BLOOD O2 SATURATION 86.8 % (94-98); ARTERIAL BLOOD PCO2 59.4 mmHg (35-45); ARTERIAL BLOOD PH 7.24 (7.35-7.45); ARTERIAL BLOOD PO2 61.7 mmHg (80-100); ARTERIAL BLOOD TOTAL CO2 26.4 mmol/L (21-25)
[2018-03-27 10:22] LABS: ARTERIAL BLOOD FIO2 ROOM AIR
[2018-03-27] MEDS ORDERED: DEXTROSE 5%-WATER 250 ML with NOREPINEPHRINE BITARTRATE 4 MG IV PRN ×2 (10:32)
--- NOTE | 2018-03-27 12:44 | RADIOLOGY REPORT (SQ) ---
EXAM DESCRIPTION: CT HEAD WITHOUT COMPLETED DATE/TIME: 03/27/2018 12:04 pm REASON FOR STUDY: Decreased LOC, R/O stroke COMPARISON: 12/18/2016, 06/19/2011, and 01/12/2008. TECHNIQUE: Axial images acquired through the brain without intravenous contrast. Images reviewed wi th bone, brain and subdural windows. Additional sagittal and coronal reconstructions were generated. Images stored on PACS. All CT scanners at this facility use dose modulation, iterative reconstruction, and/or weight based d osing when appropriate to reduce radiation dose to as low as reasonably achievable (ALARA). [facility]: Dose Right [facility]: CareDose [facility]: Dose Right [facility]: Teradose 4D [facility]: [employer] Sciences RADIATION DOSE: CT Rad equipment meets quality standard of care and radiation dose reduction techniq ues were employed. CTDIvol: 48.6 mGy. DLP: 978 mGy-cm.mGy. LIMITATIONS: None. FINDINGS: VENTRICLES: Prominent. CEREBRUM: No masses. No hemorrhage. No midline shift. Areas of low density in the white matter mos t likely due to chronic micro-vascular ischemic change. No evidence for acute infarction. CEREBELLUM: No masses. No hemorrhage. No alteration of density. No evidence for acute infarction. EXTRAAXIAL SPACES: Age-related involutional change. No fluid collections. No masses. ORBITS AND GLOBE: No intra- or extraconal masses. Normal contour of globe without masses. CALVARIUM: Stable scattered lytic lesions in the skull base. 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 Prominent empty sella. PARANASAL SINUSES: No fluid or mucosal thickening. SOFT TISSUES: No mass or hematoma. OTHER: No other significant finding. IMPRESSION: CHRONIC CHANGES OF ATROPHY AND MICROVASCULAR ISCHEMIA. STABLE LYTIC LESIONS IN THE SKUL L BASE. 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 NO ACUTE PROCESS. EVIDENCE OF ACUTE STROKE: NO. TECHNICAL DOCUMENTATION: JOB ID: [id number] Quality ID # [id number]: Final reports with documentation of one or more dose reduction techniques (e.g., Au tomated exposure control, adjustment of the mA and/or kV according to patient size, use of iterative reconstruction technique) 2010 [employer]- All Rights Reserved Reading location - IP/workstation name: [email or web address]
[2018-03-27 14:36] LABS: ARTERIAL BLOOD H2CO3 1.47 mmol/L (1.05-1.35); ARTERIAL BLOOD HCO3 23.5 mmol/L (20-26); ARTERIAL BLOOD O2 SATURATION 88.2 % (94-98)
[2018-03-27 14:46] LABS: ARTERIAL BLOOD FIO2 25%
[2018-03-27 14:56] LABS: AMORPHOUS SEDIMENT,URINE TRACE /HPF; APPEARANCE,URINE CLOUDY; BILIRUBIN,URINE NEGATIVE (NEGATIVE); COLOR,URINE YELLOW; GLUCOSE, URINE NEGATIVE (NEGATIVE); KETONES,URINE NEGATIVE (NEGATIVE); LEUKOCYTE ESTERASE,URINE NEGATIVE (NEGATIVE); NITRITE,URINE NEGATIVE (NEGATIVE); PROTEIN,URINE 30 mg/dL (NEGATIVE); URINE SPECIFIC GRAVITY 1.014; UROBILINOGEN,URINE NEGATIVE mg/dL (<2.0)
[2018-03-27] MEDS ORDERED: FUROSEMIDE INJ/PF 40 MG/4 ML SDV IV ONE (15:15)
[2018-03-27] MEDS: CEFEPIME 1 GM/D5W RTU 1 GM/50 ML RTUPB IV SCH (17:01)
--- NOTE | 2018-03-27 18:15 | PDOC PROGRESS REPORT ---
Subjective Progress Note for:: 03/27/18 Subjective:: The patient is unresponsive this morning. She was placed on BIPAP overnight on 50% O2. Her ABG demonstrated respiratory acidosis with an elevated CO2. Reason For Visit: ACUTE HYPOXIC RESPIRATORY FAILURE,PNEUMONIA,ATRIAL Physical Exam Vital Signs: Temp Pulse Resp BP Pulse Ox 98.2 F 96 14 117/64 90 L 03/27/18 17:15 03/27/18 17:15 03/27/18 17:15 03/27/18 17:15 03/27/18 17:15 Intake & Output 03/26/18 03/27/18 03/28/18 06:59 06:59 06:59 Output Total 800 850 155 Balance -800 -850 -155 Weight 51.7 kg 53.1 kg General appearance: PRESENT: other - The patient is not responsive to sternal rub. Her respirations appear agonal. Eye exam: PRESENT: PERRLA Respiratory exam: PRESENT: other - Dminished breath sounds bilaterally. Respirations appear agonal.. ABSENT: rales, rhonchi, wheezes Cardiovascular exam: PRESENT: RRR. ABSENT: gallop, rubs, systolic murmur Pulses: PRESENT: other - Diminished distal pulses. GI/Abdominal exam: PRESENT: hypoactive bowel sounds, soft. ABSENT: distended, hernia, mass, organolmegaly, tenderness Extremities exam: ABSENT: clubbing, tenderness, +1 edema Neurological exam: PRESENT: other - The patient is not responsive to noxious stimuli. Skin exam: PRESENT: dry, intact, warm Results Laboratory Results: 03/27/18 03:48 03/27/18 03:48 03/27/18 03/27/18 03/27/18 03:48 03:48 06:37 WBC 9.6 D RBC 2.84 L Hgb 8.7 L Hct 25.8 L MCV 91 MCH 30.7 MCHC 33.8 RDW 15.3 H Plt Count 173 Carbonic Acid 1.85 H HCO3/H2CO3 Ratio 13:1 ABG pH 7.21 L ABG pCO2 61.6 H ABG pO2 111.9 H ABG HCO3 24.3 ABG O2 Saturation 97.1 ABG Base Excess -4.0 FiO2 50% Sodium 137.3 Potassium 3.6 Chloride 103 Carbon Dioxide 22 Anion Gap 12 BUN 59 H Creatinine 1.51 H Est GFR ( Amer) 39 L Est GFR (Non-Af Amer) 33 L Glucose 98 Calcium 7.8 L Urine Color Urine Appearance Urine pH Ur Specific [place] Urine Protein Urine Glucose (UA) Urine Ketones Urine Blood Urine Nitrite Ur Leukocyte Esterase Urine WBC (Auto) Urine RBC (Auto) 03/27/18 03/27/18 03/27/18 10:10 14:22 14:38 WBC RBC Hgb Hct MCV MCH MCHC RDW Plt Count Carbonic Acid 1.79 H 1.47 H HCO3/H2CO3 Ratio 13:1 15:1 ABG pH 7.24 L 7.30 L ABG pCO2 59.4 H 49.0 H ABG pO2 61.7 L 60.0 L ABG HCO3 24.6 23.5 ABG O2 Saturation 86.8 L 88.2 L ABG Base Excess -3.3 -3.0 FiO2 ROOM AIR 25% Sodium Potassium Chloride Carbon Dioxide Anion Gap BUN Creatinine Est GFR ( Amer) Est GFR (Non-Af Amer) Glucose Calcium Urine Color YELLOW Urine Appearance CLOUDY Urine pH 5.0 Ur Specific [place] 1.014 Urine Protein 30 H Urine Glucose (UA) NEGATIVE Urine Ketones NEGATIVE Urine Blood SMALL H Urine Nitrite NEGATIVE Ur Leukocyte Esterase NEGATIVE Urine WBC (Auto) 3 Urine RBC (Auto) 4 03/25/18 03/26/18 19:40 03:50 Troponin I 0.054 0.126 Impressions: Chest X-Ray 03/27/18 00:00 IMPRESSION: New dense alveolar infiltrates in the right lower lobe and left perihilar region, worrisome for pulmonary edema or pneumonia. Head CT 03/27/18 00:00 IMPRESSION: CHRONIC CHANGES OF ATROPHY AND MICROVASCULAR ISCHEMIA. STABLE LYTIC LESIONS IN THE SKULL BASE. 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 NO ACUTE PROCESS. EVIDENCE OF ACUTE STROKE: NO. Assessment & Plan - Diagnosis (1) Acute respiratory failure with hypoxia Is this a current diagnosis for this admission?: Yes Plan: ABG demonstrated respiratory acidosis with hypercarbia this morning. I believe that her SaO2 was too high and caused her to retain CO2. She was initially taken off BIPAP for a trial on room air. Her follow up gas was only slightly improved, although her oxygenation remained adequate. she was then returned to BIPAP on 21% O2. Her pH is improved. She remains unresponsive. (2) Atrial fibrillation with rapid ventricular response Is this a current diagnosis for this admission?: Yes Plan: IV diltiazem and 1mg/kg lovenox. Rate is controlled. 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 She has had aspiration pneumonia before. The patient will be placed on cefepime and azithromycin. This should cover her for gram negative's as well as anaerobic organisms. Blood cultures and sputum cultures have been ordered and have shown no growth. (4) Acute kidney injury Is this a current diagnosis for this admission?: Yes Plan: Assumed to be due to sepsis, but creatinine is less improved since admission than I would have anticipated. Continue to monitor and to avoid nephrotoxic agents. This is possibly chronic. (5) Deafness Qualifiers: Laterality: bilateral Qualified Code(s): H91.93 - Unspecified hearing loss , bilateral Is this a current diagnosis for this admission?: Yes Plan: Noted. (6) Sepsis Qualifiers: Sepsis type: sepsis due to unspecified organism Qualified Code(s): A41.9 - Sepsis, unspecified organism Is this a current diagnosis for this admission?: Yes (7) UTI (urinary tract infection) Qualifiers: Urinary tract infection type: acute cystitis Hematuria presence: without hematuria Qualified Code(s): N30.00 - Acute cystitis without hematuria Is this a current diagnosis for this admission?: Yes Plan: Urine has grown out E. Coli. Awaiting sensitivities. (8) Toxic metabolic encephalopathy Is this a current diagnosis for this admission?: Yes Plan: Worsening. The patient is now unresponsive. CT head was negative for acute pathology. Avoid sedating medications. (9) Hypoglycemia Is this a current diagnosis for this admission?: Yes Plan: D 10 and hypoglycemic protocol. Pt's mental status currently precludes the initiation of a diet. (10) Pulmonary edema Qualifiers: Chronicity: acute Qualified Code(s): J81.0 - Acute pulmonary edema Is this a current diagnosis for this admission?: Yes Plan: I have added Levophed to increase the patient's blood pressure to allow for diuresis. I will check an EKG and follow troponins, although the patient has been stable on telemetry. her troponins were minimally elevated previously, but this was thought to be due to her renal insufficiency and rapid ventricular response due to atrial fibrillation. - Time Time Spent with patient: 35 or more minutes Medications reviewed and adjusted accordingly: Yes Anticipated discharge: SNF - Plan Summary Plan Summary: This morning one of the daughters told nursing that what they actually wanted was for the patient to be Full code, except no chest compressions. This change was made, but I went back to talk with the daughter. She decided to again make the patient a "Do Not Resuscitate".
[2018-03-27] MEDS: DILTIAZEM HCL/D5W 125 MG/125 ML RTUINJ IV PRN (18:34)
[2018-03-27] MEDS ORDERED: DIGOXIN INJ 0.5 MG/2 ML AMPULE IV ONE (20:00)
[2018-03-27] MEDS: AZITHROMYCIN 500 MG in DEXTROSE 5%-WATER 250 ML IV SCH (21:11)
--- NOTE | 2018-03-27 21:55 | EKG REPORT ---
SEVERITY:- ABNORMAL ECG - ATRIAL FIBRILLATION PROBABLE INFERIOR INFARCT, AGE INDETERMINATE ANTERIOR INFARCT, OLD ST DEPRESSION, CONSIDER ISCHEMIA, LAT LEADS : Confirmed by: Tamir Guzman 27-Mar-2018 21:54:59
[2018-03-28] MEDS: NORMAL SALINE 1000 ML 1,000 ML IV PRN (00:32)
[2018-03-28 03:41] LABS: ARTERIAL BLOOD BASE EXCESS -3.8 mmol/L; ARTERIAL BLOOD H2CO3 1.12 mmol/L (1.05-1.35); ARTERIAL BLOOD HCO3 21.1 mmol/L (20-26); ARTERIAL BLOOD PCO2 37.2 mmHg (35-45); ARTERIAL BLOOD PH 7.37 (7.35-7.45); ARTERIAL BLOOD TOTAL CO2 22.2 mmol/L (21-25)
[2018-03-28 03:42] LABS: ARTERIAL BLOOD FIO2 30%
[2018-03-28 06:30] LABS: HEMATOCRIT 23.5 % (36.0-47.0); MEAN CORPUSCULAR HEMOGLOBIN 30.4 pg (27.0-33.4); MEAN CORPUSCULAR HGB CONC 33.8 g/dL (32.0-36.0); MEAN CORPUSCULAR VOLUME 90 fl (80-97); PLATELET COUNT 114 10^3/uL (150-450); RED BLOOD COUNT 2.62 10^6/uL (3.72-5.28); RED CELL DISTRIBUTION WIDTH 15.3 % (11.5-14.0)
[2018-03-28 06:39] LABS: ANION GAP 12 (5-19); BLOOD UREA NITROGEN 58 mg/dL (7-20); CALCIUM 7.4 mg/dL (8.4-10.2); CARBON DIOXIDE 20 mmol/L (22-30); CHLORIDE 99 mmol/L (98-107); GLUCOSE 109 mg/dL (75-110); SODIUM 130.7 mmol/L (137-145)
[2018-03-28 06:50] LABS: HEMOGLOBIN 7.9 g/dL (12.0-15.5)
[2018-03-28 06:54] LABS: ABSOLUTE LYMPHOCYTES# (MANUAL) 0.5 10^3/uL (0.5-4.7); ABSOLUTE MONOCYTES # (MANUAL) 0.3 10^3/uL (0.1-1.4); ABSOLUTE NEUTROPHILS# (MANUAL) 12.1 10^3/uL (1.7-8.2); BAND NEUTROPHILS % (MANUAL) 3 % (3-5); BASOPHILS % (MANUAL) 0 % (0-2); EOSINOPHILS % (MANUAL) 1 % (0-6); LYMPHOCYTES % (MANUAL) 4 % (13-45); MONOCYTES % (MANUAL) 2 % (3-13); SEGMENTED NEUTROPHILS % (MAN) 90 % (42-78); TOTAL CELLS COUNTED 100
[2018-03-28 06:57] LABS: ANISOCYTOSIS SLIGHT; PLATELET COMMENT DECREASED; TOXIC GRANULATION 1+; TOXIC VACUOLATION PRESENT
[2018-03-28] MEDS ORDERED: POTASSI CL 20 MEQ/50 ML IV ONE (07:00)
[2018-03-28] MEDS ORDERED: RIDER IV ONE (07:00)
[2018-03-28] MEDS: ENOXAPARIN SODIUM INJ 60 MG/0.6 ML DISP.SYRIN SUBCUT SCH (09:18)
[2018-03-28] MEDS: POTASSI CL 20 MEQ/50 ML RIDER 20 MEQ/50 ML RTUPB IV SCH ×3 (09:33→14:19)
[2018-03-28] MEDS: DILTIAZEM HCL/D5W 125 MG/125 ML RTUINJ IV PRN (09:36)
[2018-03-28] MEDS: DEXTROSE 10%-WATER 1,000 ML IV PRN ×2 (09:37→23:27)
[2018-03-28 11:26] LABS: ARTERIAL BLOOD BASE EXCESS -3.3 mmol/L; ARTERIAL BLOOD H2CO3 1.23 mmol/L (1.05-1.35); ARTERIAL BLOOD HCO3 22.1 mmol/L (20-26); ARTERIAL BLOOD O2 SATURATION 89.9 % (94-98); ARTERIAL BLOOD PCO2 40.7 mmHg (35-45); ARTERIAL BLOOD PH 7.35 (7.35-7.45); ARTERIAL BLOOD TOTAL CO2 23.3 mmol/L (21-25)
[2018-03-28 11:28] LABS: ARTERIAL BLOOD FIO2 1LNC
--- NOTE | 2018-03-28 17:24 | PDOC PROGRESS REPORT ---
Subjective Progress Note for:: 03/28/18 Subjective:: The patient is more alert this morning, but she is still not attending. She will open her eyes to voice. She does not follow commands. Reason For Visit: ACUTE HYPOXIC RESPIRATORY FAILURE,PNEUMONIA,ATRIAL Physical Exam Vital Signs: Temp Pulse Resp BP Pulse Ox 98.1 F 89 16 139/66 H 95 03/28/18 14:00 03/28/18 14:00 03/28/18 14:20 03/28/18 14:20 03/28/18 16:30 Intake & Output 03/27/18 03/28/18 03/29/18 06:59 06:59 06:59 Intake Total 2903 Output Total 850 1120 670 Balance -850 1783 -670 Weight 53.1 kg 55.2 kg General appearance: PRESENT: well-developed, well-nourished, other - The patient appears acutely ill. Her eyes are open and she stirs and reacts to vocal and tactile stimulation, but she does not attend to my presence and she does not follow commands. Neck exam: ABSENT: carotid bruit, JVD, lymphadenopathy, thyromegaly Respiratory exam: PRESENT: rales, unlabored. ABSENT: rhonchi, wheezes Cardiovascular exam: PRESENT: RRR, other - No lateral PMI. No thrills.. ABSENT : diastolic murmur, rubs, systolic murmur Pulses: PRESENT: other - Diminished distal pulses. GI/Abdominal exam: PRESENT: normal bowel sounds, soft. ABSENT: distended, guarding, mass, organolmegaly, rebound, tenderness Rectal exam: PRESENT: deferred Extremities exam: PRESENT: full ROM. ABSENT: calf tenderness, clubbing, pedal edema Neurological exam: PRESENT: awake, other - I am unable to perform a neurological exam as the patient is unable to cooperate with exam. Skin exam: PRESENT: dry, intact, warm. ABSENT: cyanosis, rash Results Laboratory Results: 03/28/18 06:13 03/28/18 06:13 03/28/18 03/28/18 03/28/18 03:37 06:13 06:13 WBC 13.0 H RBC 2.62 L Hgb 7.9 L Hct 23.5 L MCV 90 MCH 30.4 MCHC 33.8 RDW 15.3 H Plt Count 114 L Seg Neutrophils % Not Reportable Lymphocytes % Not Reportable Monocytes % Not Reportable Eosinophils % Not Reportable Basophils % Not Reportable Absolute Neutrophils Not Reportable Absolute Lymphocytes Not Reportable Absolute Monocytes Not Reportable Absolute Eosinophils Not Reportable Absolute Basophils Not Reportable Carbonic Acid 1.12 HCO3/H2CO3 Ratio 18:1 ABG pH 7.37 ABG pCO2 37.2 ABG pO2 71.0 L ABG HCO3 21.1 ABG O2 Saturation 94.0 ABG Base Excess -3.8 FiO2 30% Sodium 130.7 L Potassium 3.0 L* Chloride 99 Carbon Dioxide 20 L Anion Gap 12 BUN 58 H Creatinine 1.47 H Est GFR ( Amer) 41 L Est GFR (Non-Af Amer) 34 L Glucose 109 Calcium 7.4 L Magnesium 2.0 03/28/18 11:15 WBC RBC Hgb Hct MCV MCH MCHC RDW Plt Count Seg Neutrophils % Lymphocytes % Monocytes % Eosinophils % Basophils % Absolute Neutrophils Absolute Lymphocytes Absolute Monocytes Absolute Eosinophils Absolute Basophils Carbonic Acid 1.23 HCO3/H2CO3 Ratio 17:1 ABG pH 7.35 ABG pCO2 40.7 ABG pO2 60.0 L ABG HCO3 22.1 ABG O2 Saturation 89.9 L ABG Base Excess -3.3 FiO2 1LNC Sodium Potassium Chloride Carbon Dioxide Anion Gap BUN Creatinine Est GFR ( Amer) Est GFR (Non-Af Amer) Glucose Calcium Magnesium 03/25/18 03/26/18 03/27/18 19:40 03:50 18:30 Troponin I 0.054 0.126 0.238 03/28/18 03/28/18 02:16 10:22 Troponin I 0.225 0.178 Impressions: Chest X-Ray 03/27/18 00:00 IMPRESSION: New dense alveolar infiltrates in the right lower lobe and left perihilar region, worrisome for pulmonary edema or pneumonia. Head CT 03/27/18 00:00 IMPRESSION: CHRONIC CHANGES OF ATROPHY AND MICROVASCULAR ISCHEMIA. STABLE LYTIC LESIONS IN THE SKULL BASE. 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 NO ACUTE PROCESS. EVIDENCE OF ACUTE STROKE: NO. Assessment & Plan - Diagnosis (1) Acute respiratory failure with hypoxia Is this a current diagnosis for this admission?: Yes Plan: ABG much improved this morning. The patient is now off of BIPAP and is saturating in the mid-nineties on 1L O2 by nc. Avoid high SaO2 as patient is a CO2 retainer. (2) Atrial fibrillation with rapid ventricular response Is this a current diagnosis for this admission?: Yes Plan: IV diltiazem and 1mg/kg lovenox. Rate is controlled. 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 She has had aspiration pneumonia before. The patient will be placed on cefepime and azithromycin. This should cover her for gram negative's as well as anaerobic organisms. Blood cultures and sputum cultures have been ordered and have shown no growth. (4) Acute kidney injury Is this a current diagnosis for this admission?: Yes Plan: I believe that the patient has some chronic kidney disease. Her creatinine is 1.47 today and has not improved a great deal since admission. (5) Deafness Qualifiers: Laterality: bilateral Qualified Code(s): H91.93 - Unspecified hearing loss , bilateral Is this a current diagnosis for this admission?: Yes (6) Sepsis Qualifiers: Sepsis type: sepsis due to unspecified organism Qualified Code(s): A41.9 - Sepsis, unspecified organism Is this a current diagnosis for this admission?: Yes Plan: Sepsis protocol, blood cultures drawn. Serial lactic acids. IV fluid resuscitation. IV antibiotics. (7) UTI (urinary tract infection) Qualifiers: Urinary tract infection type: acute cystitis Hematuria presence: without hematuria Qualified Code(s): N30.00 - Acute cystitis without hematuria Is this a current diagnosis for this admission?: Yes Plan: Urine has grown out E. Coli seinsitive to cefepime. (8) Toxic metabolic encephalopathy Is this a current diagnosis for this admission?: Yes Plan: Improved. The patient has an increased level of responsiveness, although she remains inattentive. (9) Hypoglycemia Is this a current diagnosis for this admission?: Yes Plan: D 10 and hypoglycemic protocol. Pt's mental status currently precludes the initiation of a diet. (10) Pulmonary edema Qualifiers: Chronicity: acute Qualified Code(s): J81.0 - Acute pulmonary edema Is this a current diagnosis for this admission?: Yes Plan: I have added Levophed to increase the patient's blood pressure to allow for diuresis. The patient has responded well to diuresis with decreased FIO2 requirements. (11) Elevated troponin Is this a current diagnosis for this admission?: Yes Plan: Declining and likely due to rapid ventricular rate with atrial fibrillation. EKG unchanged from previous. BALAJI. - Time Time Spent with patient: 35 or more minutes Medications reviewed and adjusted accordingly: Yes Anticipated discharge: SNF
[2018-03-28] MEDS: CEFEPIME 1 GM/D5W RTU 1 GM/50 ML RTUPB IV SCH (17:50)
[2018-03-28] MEDS: AZITHROMYCIN 500 MG in DEXTROSE 5%-WATER 250 ML IV SCH (21:03)
[2018-03-29] MEDS ORDERED: HALOPERIDOL LACTATE INJ 5 MG/1 ML VIAL IM PRN (03:14)
[2018-03-29] MEDS ORDERED: FUROSEMIDE INJ/PF 20 MG/2 ML SDV IV ONE (03:15)
[2018-03-29] MEDS: IPRATROPIUM/ALBUTEROL 0.5-2.5 MG/3 ML AMPUL NEB PRN (03:44)
[2018-03-29 04:00] LABS: HEMATOCRIT 25.8 % (36.0-47.0); HEMOGLOBIN 8.6 g/dL (12.0-15.5); MEAN CORPUSCULAR HEMOGLOBIN 29.9 pg (27.0-33.4); MEAN CORPUSCULAR HGB CONC 33.3 g/dL (32.0-36.0); MEAN CORPUSCULAR VOLUME 90 fl (80-97); PLATELET COUNT 103 10^3/uL (150-450); RED BLOOD COUNT 2.88 10^6/uL (3.72-5.28); RED CELL DISTRIBUTION WIDTH 15.7 % (11.5-14.0); WHITE BLOOD COUNT 16.4 10^3/uL (4.0-10.5)
[2018-03-29 04:11] LABS: ANION GAP 11 (5-19); BLOOD UREA NITROGEN 54 mg/dL (7-20); CALCIUM 7.8 mg/dL (8.4-10.2); CARBON DIOXIDE 18 mmol/L (22-30); CHLORIDE 100 mmol/L (98-107); GLUCOSE 125 mg/dL (75-110); POTASSIUM 3.9 mmol/L (3.6-5.0); SODIUM 128.6 mmol/L (137-145)
[2018-03-29 04:35] LABS: ARTERIAL BLOOD H2CO3 1.08 mmol/L (1.05-1.35); ARTERIAL BLOOD HCO3 17.5 mmol/L (20-26); ARTERIAL BLOOD O2 SATURATION 91.7 % (94-98); ARTERIAL BLOOD PCO2 35.8 mmHg (35-45); ARTERIAL BLOOD PH 7.31 (7.35-7.45); ARTERIAL BLOOD PO2 66.8 mmHg (80-100); ARTERIAL BLOOD TOTAL CO2 18.6 mmol/L (21-25)
[2018-03-29 04:37] LABS: AMORPHOUS SEDIMENT,URINE TRACE /HPF; APPEARANCE,URINE CLOUDY; ARTERIAL BLOOD FIO2 40%; BILIRUBIN,URINE NEGATIVE (NEGATIVE); COLOR,URINE YELLOW; GLUCOSE, URINE NEGATIVE (NEGATIVE); KETONES,URINE NEGATIVE (NEGATIVE); LEUKOCYTE ESTERASE,URINE NEGATIVE (NEGATIVE); NITRITE,URINE NEGATIVE (NEGATIVE); PROTEIN,URINE NEGATIVE (NEGATIVE); URINE SPECIFIC GRAVITY 1.006; UROBILINOGEN,URINE NEGATIVE mg/dL (<2.0)
[2018-03-29] MEDS: NORMAL SALINE 1000 ML 1,000 ML IV PRN (04:47)
[2018-03-29] MEDS ORDERED: MORPHINE SULFATE 10 MG/ML INJ ONE (05:52)
[2018-03-29] MEDS ORDERED: FUROSEMIDE INJ/PF 40 MG/4 ML SDV ONE (05:52)
[2018-03-29] MEDS ORDERED: FUROSEMIDE INJ/PF 40 MG/4 ML SDV IV ONE ×2 (06:00→13:00)
[2018-03-29] MEDS ORDERED: MORPHINE SULFATE 10 MG/ML INJ IV ONE (06:00)
--- NOTE | 2018-03-29 08:46 | RADIOLOGY REPORT (SQ) ---
EXAM DESCRIPTION: CHEST SINGLE VIEW COMPLETED DATE/TIME: 03/29/2018 6:14 am REASON FOR STUDY: hypoxia COMPARISON: Chest films 08/01/2016, 08/02/2016, 03/25/2018, 03/27/2018 EXAM PARAMETERS: NUMBER OF VIEWS: One view. TECHNIQUE: Single frontal radiographic view of the chest acquired. RADIATION DOSE: NA LIMITATIONS: None. FINDINGS: LUNGS AND PLEURA: Dense consolidation throughout both lungs left greater than right, edema versus ARDS versus pneumonia. This is increased compared to 03/27/2018. No gross pleural effusions or pneumothorax. MEDIASTINUM AND HILAR STRUCTURES: No masses. Contour normal. HEART AND VASCULAR STRUCTURES: Stable moderate cardiomegaly BONES: No acute findings. HARDWARE: None in the chest. OTHER: No other significant finding. IMPRESSION: Increasing bilateral airspace disease edema versus ARDS versus pneumonia. This report w as called to Dr. Ramos TECHNICAL DOCUMENTATION: JOB ID: [id number] [email or web address]- All Rights Reserved Reading location - IP/workstation name: [email or web address]
[2018-03-29] MEDS: ENOXAPARIN SODIUM INJ 60 MG/0.6 ML DISP.SYRIN SUBCUT SCH (10:58)
[2018-03-29] MEDS: DILTIAZEM HCL/D5W 125 MG/125 ML RTUINJ IV PRN (14:16)
[2018-03-29] MEDS: DEXTROSE 10%-WATER 1,000 ML IV PRN (14:18)
--- NOTE | 2018-03-29 18:54 | PDOC PROGRESS REPORT ---
Subjective Progress Note for:: 03/29/18 Subjective:: The patient was quite restless last night and required IV Morphine as well as Haldol. Although O2 saturations were fine, she was again placed on BIPAP. This morning the patient again has decreased level of responsiveness. Daughter is at bedside. Reason For Visit: ACUTE HYPOXIC RESPIRATORY FAILURE,PNEUMONIA,ATRIAL Physical Exam Vital Signs: Temp Pulse Resp BP Pulse Ox 97.2 F 74 13 111/67 94 03/29/18 16:00 03/29/18 16:00 03/29/18 16:25 03/29/18 16:25 03/29/18 16:25 Intake & Output 03/28/18 03/29/18 03/30/18 06:59 06:59 06:59 Intake Total 2903 3986 Output Total 1120 1695 910 Balance 1783 2291 -910 Weight 55.2 kg 57.1 kg General appearance: PRESENT: other - The patient is not responsive or attentive. On Bipap. Likely due to administration of Morphine and Haldol overnight. Eye exam: PRESENT: PERRLA Respiratory exam: PRESENT: other - No increased work of breathing. No wheezes, rales, or rhonchi are appreciated. Cardiovascular exam: PRESENT: irregular rhythm, other - No lateral PMI. No thrills.. ABSENT: gallop, rubs, systolic murmur Pulses: PRESENT: other - Diminished distal pulses. GI/Abdominal exam: PRESENT: hypoactive bowel sounds, rigid. ABSENT: hernia, mass, organolmegaly, tenderness Extremities exam: PRESENT: +2 edema. ABSENT: clubbing, joint swelling, pedal edema, tenderness Neurological exam: PRESENT: other - Unable to perform neurological exam as the patient is unable to cooperate with exam. Focused psych exam: PRESENT: other - Unable to evaluate as the patient is unable to cooperate with exam. Skin exam: PRESENT: dry, intact, warm Results Laboratory Results: 03/29/18 03:49 03/29/18 03:49 03/28/18 03/29/18 03/29/18 18:35 03:49 03:49 WBC 16.4 H RBC 2.88 L Hgb 8.6 L Hct 25.8 L MCV 90 MCH 29.9 MCHC 33.3 RDW 15.7 H Plt Count 103 L Carbonic Acid HCO3/H2CO3 Ratio ABG pH ABG pCO2 ABG pO2 ABG HCO3 ABG O2 Saturation ABG Base Excess FiO2 Sodium 128.6 L Potassium 3.8 3.9 Chloride 100 Carbon Dioxide 18 L Anion Gap 11 BUN 54 H Creatinine 1.38 H Est GFR ( Amer) 44 L Est GFR (Non-Af Amer) 36 L Glucose 125 H Calcium 7.8 L Magnesium 1.8 Urine Color Urine Appearance Urine pH Ur Specific [place] Urine Protein Urine Glucose (UA) Urine Ketones Urine Blood Urine Nitrite Ur Leukocyte Esterase Urine WBC (Auto) Urine RBC (Auto) 03/29/18 03/29/18 04:26 04:26 WBC RBC Hgb Hct MCV MCH MCHC RDW Plt Count Carbonic Acid 1.08 HCO3/H2CO3 Ratio 16:1 ABG pH 7.31 L ABG pCO2 35.8 ABG pO2 66.8 L ABG HCO3 17.5 L ABG O2 Saturation 91.7 L ABG Base Excess -8.0 FiO2 40% Sodium Potassium Chloride Carbon Dioxide Anion Gap BUN Creatinine Est GFR ( Amer) Est GFR (Non-Af Amer) Glucose Calcium Magnesium Urine Color YELLOW Urine Appearance CLOUDY Urine pH 5.0 Ur Specific [place] 1.006 Urine Protein NEGATIVE Urine Glucose (UA) NEGATIVE Urine Ketones NEGATIVE Urine Blood MODERATE H Urine Nitrite NEGATIVE Ur Leukocyte Esterase NEGATIVE Urine WBC (Auto) 2 Urine RBC (Auto) 8 03/25/18 03/26/18 03/27/18 19:40 03:50 18:30 Troponin I 0.054 0.126 0.238 03/28/18 03/28/18 02:16 10:22 Troponin I 0.225 0.178 Impressions: Head CT 03/27/18 00:00 IMPRESSION: CHRONIC CHANGES OF ATROPHY AND MICROVASCULAR ISCHEMIA. STABLE LYTIC LESIONS IN THE SKULL BASE. 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 NO ACUTE PROCESS. EVIDENCE OF ACUTE STROKE: NO. Chest X-Ray 03/29/18 07:00 IMPRESSION: Increasing bilateral airspace disease edema versus ARDS versus pneumonia. This report was called to Dr. Ramos Assessment & Plan - Diagnosis (1) Acute respiratory failure with hypoxia Is this a current diagnosis for this admission?: Yes Plan: The patient was on BIPAP overnight. O2 saturations are decreased, possibly due to pulmonary edema. I have discussed this morning's CXR with Dr. Elli. It appears markedly worse, due to either pulmonary edema or development of ARDS. Will diurese. (2) Atrial fibrillation with rapid ventricular response Is this a current diagnosis for this admission?: Yes Plan: IV diltiazem and 1mg/kg lovenox. Rate is controlled. 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 She has had aspiration pneumonia before. The patient will be placed on cefepime and azithromycin. This should cover her for gram negative's as well as anaerobic organisms. Blood cultures and sputum cultures have been ordered and have shown no growth. I have discussed this morning's CXR with radiology. They feel that it appears quite a bit worse probably due to pulmonary edema or interval development of ARDS. Nursing is having to suction copious secretions today. (4) Acute kidney injury Is this a current diagnosis for this admission?: Yes Plan: I believe that the patient has some chronic kidney disease. Her creatinine is very slowly declining. Avoid nephrotoxic substances. (5) Deafness Qualifiers: Laterality: bilateral Qualified Code(s): H91.93 - Unspecified hearing loss , bilateral Is this a current diagnosis for this admission?: Yes (6) Sepsis Qualifiers: Sepsis type: sepsis due to unspecified organism Qualified Code(s): A41.9 - Sepsis, unspecified organism Is this a current diagnosis for this admission?: Yes (7) UTI (urinary tract infection) Qualifiers: Urinary tract infection type: acute cystitis Hematuria presence: without hematuria Qualified Code(s): N30.00 - Acute cystitis without hematuria Is this a current diagnosis for this admission?: Yes Plan: Urine has grown out E. Coli seinsitive to cefepime. (8) Toxic metabolic encephalopathy Is this a current diagnosis for this admission?: Yes Plan: The patient is again obtunded this morning. She remains inattentive. Complicated by use of Morphine and Haldol at night for agitation. (9) Hypoglycemia Is this a current diagnosis for this admission?: Yes Plan: D 10 and hypoglycemic protocol. Pt's mental status currently precludes the initiation of a diet. (10) Pulmonary edema Qualifiers: Chronicity: acute Qualified Code(s): J81.0 - Acute pulmonary edema Is this a current diagnosis for this admission?: Yes Plan: Off of levophed. Diuresis. (11) Elevated troponin Is this a current diagnosis for this admission?: Yes Plan: Declining and likely due to rapid ventricular rate with atrial fibrillation. EKG unchanged from previous. BALAJI. (12) Hyponatremia Is this a current diagnosis for this admission?: Yes Plan: Due to volume overload. Will diureses. - Time Time Spent with patient: 35 or more minutes Total Critical Time (Minutes): 38 Medications reviewed and adjusted accordingly: Yes
[2018-03-29] MEDS: CEFEPIME 1 GM/D5W RTU 1 GM/50 ML RTUPB IV SCH (19:06)
[2018-03-29] MEDS: AZITHROMYCIN 500 MG in DEXTROSE 5%-WATER 250 ML IV SCH (21:55)
[2018-03-30 04:45] LABS: HEMATOCRIT 24.7 % (36.0-47.0); HEMOGLOBIN 8.3 g/dL (12.0-15.5); MEAN CORPUSCULAR HEMOGLOBIN 29.4 pg (27.0-33.4); MEAN CORPUSCULAR HGB CONC 33.4 g/dL (32.0-36.0); MEAN CORPUSCULAR VOLUME 88 fl (80-97); RED BLOOD COUNT 2.81 10^6/uL (3.72-5.28); RED CELL DISTRIBUTION WIDTH 15.2 % (11.5-14.0); WHITE BLOOD COUNT 17.1 10^3/uL (4.0-10.5)
[2018-03-30 04:51] LABS: PLATELET COUNT 70 10^3/uL (150-450)
[2018-03-30 04:52] LABS: ABSOLUTE LYMPHOCYTES# (MANUAL) 0.3 10^3/uL (0.5-4.7); ABSOLUTE NEUTROPHILS# (MANUAL) 16.8 10^3/uL (1.7-8.2); BASOPHILS % (MANUAL) 0 % (0-2); EOSINOPHILS % (MANUAL) 0 % (0-6); LYMPHOCYTES % (MANUAL) 2 % (13-45); MONOCYTES % (MANUAL) 0 % (3-13); SEGMENTED NEUTROPHILS % (MAN) 98 % (42-78); TOTAL CELLS COUNTED 100
[2018-03-30 04:53] LABS: ANISOCYTOSIS 1+; HYPOCHROMASIA 2+
[2018-03-30 04:54] LABS: OVALOCYTES SLIGHT; PLATELET COMMENT DECREASED; POIKILOCYTOSIS 1+
[2018-03-30 05:44] LABS: ANION GAP 13 (5-19); BLOOD UREA NITROGEN 56 mg/dL (7-20); CALCIUM 7.7 mg/dL (8.4-10.2); CARBON DIOXIDE 18 mmol/L (22-30); CHLORIDE 95 mmol/L (98-107); GLUCOSE 105 mg/dL (75-110); SODIUM 125.6 mmol/L (137-145)
[2018-03-30 06:18] LABS: ARTERIAL BLOOD BASE EXCESS -7.6 mmol/L; ARTERIAL BLOOD H2CO3 1.11 mmol/L (1.05-1.35); ARTERIAL BLOOD HCO3 17.9 mmol/L (20-26); ARTERIAL BLOOD PCO2 36.8 mmHg (35-45); ARTERIAL BLOOD PH 7.31 (7.35-7.45); ARTERIAL BLOOD PO2 67.9 mmHg (80-100); ARTERIAL BLOOD TOTAL CO2 19.1 mmol/L (21-25)
[2018-03-30 06:19] LABS: ARTERIAL BLOOD FIO2 50%
[2018-03-30] MEDS ORDERED: POTASSIUM CHLORIDE 20 MEQ/50 ML RTU IV ONE (06:45)
[2018-03-30] MEDS: ENOXAPARIN SODIUM INJ 60 MG/0.6 ML DISP.SYRIN SUBCUT SCH (09:28)
[2018-03-30] MEDS: FUROSEMIDE INJ/PF 40 MG/4 ML SDV IV SCH (09:28)
[2018-03-30] MEDS: DEXTROSE 10%-WATER 1,000 ML IV PRN (12:30)
[2018-03-30] MEDS: MORPHINE SULFATE 10 MG/ML INJ IV PRN (12:31)
--- NOTE | 2018-03-30 17:14 | PDOC PROGRESS REPORT ---
Subjective Progress Note for:: 03/30/18 Subjective:: Patient is seen resting in bed on BiPAP. She is restless and slightly agitated. SHe was attempting to pull the BiPAP mask off. Her daughter is at the bedside. Patient is confused and unable to do review of systems. Nursing report increasing agitation during the night. Also had worsening hypoxemia requiring increasing BiPAP FiO2. Her white count is continuing to go up. Chest x-ray showed worsening bilateral infiltrates yesterday compatible with ARDS. Reason For Visit: ACUTE HYPOXIC RESPIRATORY FAILURE,PNEUMONIA,ATRIAL Physical Exam Vital Signs: Temp Pulse Resp BP Pulse Ox 97.5 F 79 26 H 100/45 L 97 03/30/18 11:27 03/30/18 14:00 03/30/18 11:27 03/30/18 13:00 03/30/18 11:27 Intake & Output 03/29/18 03/30/18 03/31/18 06:59 06:59 06:59 Intake Total 3986 1031 0 Output Total 1695 1610 300 Balance 2291 -579 -300 Weight 57.1 kg 57.1 kg General appearance: PRESENT: mild distress, thin, well-developed - BiPAP therapy and restless Head exam: PRESENT: atraumatic, normocephalic Eye exam: PRESENT: conjunctiva pink, EOMI, PERRLA. ABSENT: scleral icterus Ear exam: PRESENT: normal external ear exam Mouth exam: PRESENT: neck supple, tongue midline Neck exam: ABSENT: carotid bruit, JVD, lymphadenopathy, thyromegaly Respiratory exam: PRESENT: accessory muscle use, rales, tachypnea, wheezes Cardiovascular exam: PRESENT: RRR. ABSENT: diastolic murmur, rubs, systolic murmur Pulses: PRESENT: normal dorsalis pedis pul Vascular exam: PRESENT: normal capillary refill GI/Abdominal exam: PRESENT: normal bowel sounds, soft. ABSENT: distended, guarding, mass, organolmegaly, rebound, tenderness Rectal exam: PRESENT: deferred Extremities exam: PRESENT: full ROM. ABSENT: calf tenderness, clubbing, pedal edema Musculoskeletal exam: PRESENT: full ROM Neurological exam: PRESENT: alert, altered, CN II-XII grossly intact Psychiatric exam: PRESENT: agitated, anxious Focused psych exam: PRESENT: restlessness Skin exam: PRESENT: dry, intact, warm. ABSENT: cyanosis, rash Results Laboratory Results: 03/30/18 03:56 03/30/18 05:06 03/30/18 03/30/18 03/30/18 03:56 03:56 05:06 WBC 17.1 H RBC 2.81 L Hgb 8.3 L Hct 24.7 L MCV 88 MCH 29.4 MCHC 33.4 RDW 15.2 H Plt Count 70 L Seg Neutrophils % Not Reportable Lymphocytes % Not Reportable Monocytes % Not Reportable Eosinophils % Not Reportable Basophils % Not Reportable Absolute Neutrophils Not Reportable Absolute Lymphocytes Not Reportable Absolute Monocytes Not Reportable Absolute Eosinophils Not Reportable Absolute Basophils Not Reportable Carbonic Acid HCO3/H2CO3 Ratio ABG pH ABG pCO2 ABG pO2 ABG HCO3 ABG O2 Saturation ABG Base Excess FiO2 Sodium Cancelled 125.6 L Potassium Cancelled 3.0 L* Chloride Cancelled 95 L Carbon Dioxide Cancelled 18 L Anion Gap Cancelled 13 BUN Cancelled 56 H Creatinine Cancelled 1.18 Est GFR ( Amer) Cancelled 52 L Est GFR (Non-Af Amer) Cancelled 43 L Glucose Cancelled 105 Calcium Cancelled 7.7 L 03/30/18 05:44 WBC RBC Hgb Hct MCV MCH MCHC RDW Plt Count Seg Neutrophils % Lymphocytes % Monocytes % Eosinophils % Basophils % Absolute Neutrophils Absolute Lymphocytes Absolute Monocytes Absolute Eosinophils Absolute Basophils Carbonic Acid 1.11 HCO3/H2CO3 Ratio 16:1 ABG pH 7.31 L ABG pCO2 36.8 ABG pO2 67.9 L ABG HCO3 17.9 L ABG O2 Saturation 92.0 L ABG Base Excess -7.6 FiO2 50% Sodium Potassium Chloride Carbon Dioxide Anion Gap BUN Creatinine Est GFR ( Amer) Est GFR (Non-Af Amer) Glucose Calcium 03/25/18 03/26/18 03/27/18 19:40 03:50 18:30 Troponin I 0.054 0.126 0.238 03/28/18 03/28/18 02:16 10:22 Troponin I 0.225 0.178 Impressions: Head CT 03/27/18 00:00 IMPRESSION: CHRONIC CHANGES OF ATROPHY AND MICROVASCULAR ISCHEMIA. STABLE LYTIC LESIONS IN THE SKULL BASE. 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 NO ACUTE PROCESS. EVIDENCE OF ACUTE STROKE: NO. Chest X-Ray 03/29/18 07:00 IMPRESSION: Increasing bilateral airspace disease edema versus ARDS versus pneumonia. This report was called to Dr. Ramos Assessment & Plan - Diagnosis (1) Acute respiratory failure with hypoxia Is this a current diagnosis for this admission?: Yes Plan: sHe has worsening chest x-ray showing bilateral infiltrates. She is presently on 50% FiO2 on BiPAP. She keeps attempting to pull the mask off. When she is placed on nasal cannula she becomes tachypneic and in moderate respiratory distress. Had a lengthy discussion with her 2 daughters. We discussed the gravity of her situation. Despite broad-spectrum IV antibiotics her chest x- ray has continued to worsen. Now appears to be in ARDS. We discussed the other option of providing comfort measures only, due to her poor quality of life and not likelihood of surviving this. They will give thought to this as well. They appear to be realistic to the mother situation. They understand with her advanced age and poor health that she may not survive this. They do not want her resuscitated or placed on a ventilator. (2) Atrial fibrillation with rapid ventricular response Is this a current diagnosis for this admission?: Yes Plan: She is presently on IV diltiazem cardiology is following (3) Elevated troponin Is this a current diagnosis for this admission?: Yes Plan: Secondary to demand ischemia type II cardiology is following is not a candidate for any invasive studies (4) Hypoglycemia Is this a current diagnosis for this admission?: Yes Plan: Is presently on D10 and having no further hypoglycemia. (5) Hyponatremia Is this a current diagnosis for this admission?: Yes (6) Pneumonia Qualifiers: Pneumonia type: aspiration pneumonia Aspiration pneumonia type: unspecified Laterality: bilateral Lung location: lower lobe of lung Qualified Code(s): J69.0 - Pneumonitis due to inhalation of food and vomit Is this a current diagnosis for this admission?: Yes Plan: Most likely begin due to aspiration pneumonia she is on appropriate coverage blood cultures 2 are negative. (7) Pulmonary edema Qualifiers: Chronicity: acute Qualified Code(s): J81.0 - Acute pulmonary edema Is this a current diagnosis for this admission?: Yes Plan: She was diuresed (8) Acute kidney injury Is this a current diagnosis for this admission?: Yes (9) Altered mental status Qualifiers: Altered mental status type: transient alteration of awareness Qualified Code(s): R40.4 - Transient alteration of awareness Is this a current diagnosis for this admission?: Yes Plan: She has a history of worsening dementia. (10) Deafness Qualifiers: Laterality: bilateral Qualified Code(s): H91.93 - Unspecified hearing loss , bilateral Is this a current diagnosis for this admission?: Yes (11) Encephalopathy acute Is this a current diagnosis for this admission?: Yes Plan: She is not presently at her baseline according to her daughters. (12) Osteoporosis Qualifiers: Osteoporosis type: unspecified Presence of current pathological fracture: without current pathological fracture Qualified Code(s): M81.0 - Age-related osteoporosis without current pathological fracture Is this a current diagnosis for this admission?: Yes (13) Sepsis Qualifiers: Sepsis type: sepsis due to unspecified organism Qualified Code(s): A41.9 - Sepsis, unspecified organism Is this a current diagnosis for this admission?: Yes Plan: She continues to be tachycardic (14) UTI (urinary tract infection) Qualifiers: Urinary tract infection type: acute cystitis Hematuria presence: without hematuria Qualified Code(s): N30.00 - Acute cystitis without hematuria Is this a current diagnosis for this admission?: Yes Plan: Culture pending continue broad spectrum antibiotics - Time Time Spent with patient: 25-34 minutes Total Critical Time (Minutes): 25 Medications reviewed and adjusted accordingly: Yes
[2018-03-30] MEDS: CEFEPIME 1 GM/D5W RTU 1 GM/50 ML RTUPB IV SCH (17:57)
[2018-03-30] MEDS: AZITHROMYCIN 500 MG in DEXTROSE 5%-WATER 250 ML IV SCH (22:21)
[2018-03-31] MEDS: MORPHINE SULFATE 10 MG/ML INJ IV PRN ×2 (00:26→17:09)
[2018-03-31] MEDS: IPRATROPIUM/ALBUTEROL 0.5-2.5 MG/3 ML AMPUL NEB PRN ×2 (08:26→23:56)
[2018-03-31] MEDS: DEXTROSE 10%-WATER 1,000 ML IV PRN (08:53)
[2018-03-31] MEDS: FUROSEMIDE INJ/PF 40 MG/4 ML SDV IV SCH (08:55)
[2018-03-31] MEDS: ENOXAPARIN SODIUM INJ 60 MG/0.6 ML DISP.SYRIN SUBCUT SCH (08:56)
[2018-03-31 10:04] LABS: ANION GAP 12 (5-19); BLOOD UREA NITROGEN 61 mg/dL (7-20); CALCIUM 7.9 mg/dL (8.4-10.2); CARBON DIOXIDE 20 mmol/L (22-30); CHLORIDE 92 mmol/L (98-107); GLUCOSE 87 mg/dL (75-110); SODIUM 123.7 mmol/L (137-145)
[2018-03-31 10:10] LABS: POTASSIUM 2.8 mmol/L (3.6-5.0)
[2018-03-31] MEDS ORDERED: BISACODYL 10 MG SUPP.RECT PR ONE (10:29)
[2018-03-31] MEDS: DILTIAZEM HCL/D5W 125 MG/125 ML RTUINJ IV PRN (11:50)
[2018-03-31] MEDS: POTASSI CL 20 MEQ/50 ML RIDER 20 MEQ/50 ML RTUPB IV SCH ×2 (11:52→14:44)
[2018-03-31] MEDS: POTASSI CL 20 MEQ/D5NS 1L 20 MEQ/1,000 ML RTUINJ IV PRN (12:02)
[2018-03-31] MEDS: PIPERACILLIN SODIUM/TAZOBACTAM 2.25 GM in NORMAL SALINE 50 ML IV SCH ×2 (15:16→18:23)
[2018-03-31] MEDS: CEFEPIME 1 GM/D5W RTU 1 GM/50 ML RTUPB IV SCH (17:22)
--- NOTE | 2018-03-31 17:32 | PDOC PROGRESS REPORT ---
Subjective Progress Note for:: 03/31/18 Subjective:: Patient is seen resting in bed on BiPAP. She is restless and slightly agitated. SHe was attempting to pull the BiPAP mask off. Her daughter is at the bedside. Patient is confused and unable to do review of systems. Nursing report increasing agitation during the night. Also had worsening hypoxemia requiring increasing BiPAP FiO2. Her white count is continuing to go up. Chest x-ray showed worsening bilateral infiltrates yesterday compatible with ARDS. Reason For Visit: ACUTE HYPOXIC RESPIRATORY FAILURE,PNEUMONIA,ATRIAL Physical Exam Vital Signs: Temp Pulse Resp BP Pulse Ox 98.2 F 64 15 90/51 L 92 03/31/18 15:25 03/31/18 15:25 03/31/18 15:25 03/31/18 15:25 03/31/18 15:25 Intake & Output 03/30/18 03/31/18 04/01/18 06:59 06:59 06:59 Intake Total 1031 1201 0 Output Total 1610 950 125 Balance -579 251 -125 Weight 57.1 kg 58.1 kg General appearance: PRESENT: no acute distress, thin, well-developed, well- nourished, other - On bipap and sleeping Head exam: PRESENT: atraumatic, normocephalic Eye exam: PRESENT: conjunctiva pink, EOMI, PERRLA. ABSENT: scleral icterus Ear exam: PRESENT: normal external ear exam Mouth exam: PRESENT: moist, tongue midline Neck exam: ABSENT: carotid bruit, JVD, lymphadenopathy, thyromegaly Respiratory exam: PRESENT: crackles - bilaterally, symmetrical, unlabored Cardiovascular exam: PRESENT: RRR. ABSENT: diastolic murmur, rubs, systolic murmur Pulses: PRESENT: normal dorsalis pedis pul Vascular exam: PRESENT: normal capillary refill GI/Abdominal exam: PRESENT: normal bowel sounds, soft. ABSENT: distended, guarding, mass, organolmegaly, rebound, tenderness Rectal exam: PRESENT: deferred Extremities exam: PRESENT: full ROM. ABSENT: calf tenderness, clubbing, pedal edema Neurological exam: PRESENT: alert, altered, CN II-XII grossly intact, aphasic Psychiatric exam: PRESENT: flat affect Skin exam: PRESENT: dry, intact, warm. ABSENT: cyanosis, rash Results Laboratory Results: 03/30/18 03:56 03/31/18 08:26 03/31/18 08:26 Sodium 123.7 L Potassium 2.8 L* Chloride 92 L Carbon Dioxide 20 L Anion Gap 12 BUN 61 H Creatinine 1.40 H Est GFR ( Amer) 43 L Est GFR (Non-Af Amer) 35 L Glucose 87 Calcium 7.9 L 03/25/18 03/26/18 03/27/18 19:40 03:50 18:30 Troponin I 0.054 0.126 0.238 03/28/18 03/28/18 02:16 10:22 Troponin I 0.225 0.178 Impressions: Head CT 03/27/18 00:00 IMPRESSION: CHRONIC CHANGES OF ATROPHY AND MICROVASCULAR ISCHEMIA. STABLE LYTIC LESIONS IN THE SKULL BASE. 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 NO ACUTE PROCESS. EVIDENCE OF ACUTE STROKE: NO. Chest X-Ray 03/29/18 07:00 IMPRESSION: Increasing bilateral airspace disease edema versus ARDS versus pneumonia. This report was called to Dr. Ramos Assessment & Plan - Diagnosis (1) Acute respiratory failure with hypoxia Is this a current diagnosis for this admission?: Yes Plan: sHe has worsening chest x-ray showing bilateral infiltrates. She is presently on 50% FiO2 on BiPAP. She is resting comfortably today on BIPAP. Will add zosyn to antibiotic coverage. D/C azithromycinWhen she is placed on nasal cannula she becomes tachypneic and in moderate respiratory distress. Had a lengthy discussion with her 2 daughters. We discussed the gravity of her situation. Despite broad-spectrum IV antibiotics her chest x-ray has continued to worsen. Now appears to be in ARDS. We discussed the other option of providing comfort measures only, due to her poor quality of life and not likelihood of surviving this. They will give thought to this as well. They appear to be realistic to the mother situation. They understand with her advanced age and poor health that she may not survive this. They do not want her resuscitated or placed on a ventilator. (2) Atrial fibrillation with rapid ventricular response Is this a current diagnosis for this admission?: Yes Plan: She is presently on IV diltiazem cardiology is following (3) Elevated troponin Is this a current diagnosis for this admission?: Yes Plan: Secondary to demand ischemia type II cardiology is following is not a candidate for any invasive studies (4) Hypoglycemia Is this a current diagnosis for this admission?: Yes Plan: Is presently on D10 and having no further hypoglycemia. (5) Hyponatremia Is this a current diagnosis for this admission?: Yes (6) Pneumonia Qualifiers: Pneumonia type: aspiration pneumonia Aspiration pneumonia type: unspecified Laterality: bilateral Lung location: lower lobe of lung Qualified Code(s): J69.0 - Pneumonitis due to inhalation of food and vomit Is this a current diagnosis for this admission?: Yes Plan: Most likely begin due to aspiration pneumonia she is on appropriate coverage blood cultures 2 are negative. (7) Pulmonary edema Qualifiers: Chronicity: acute Qualified Code(s): J81.0 - Acute pulmonary edema Is this a current diagnosis for this admission?: Yes Plan: She was diuresed (8) Acute kidney injury Is this a current diagnosis for this admission?: Yes (9) Altered mental status Qualifiers: Altered mental status type: transient alteration of awareness Qualified Code(s): R40.4 - Transient alteration of awareness Is this a current diagnosis for this admission?: Yes Plan: She has a history of worsening dementia. (10) Deafness Qualifiers: Laterality: bilateral Qualified Code(s): H91.93 - Unspecified hearing loss , bilateral Is this a current diagnosis for this admission?: Yes (11) Encephalopathy acute Is this a current diagnosis for this admission?: Yes Plan: She is not presently at her baseline according to her daughters. (12) Osteoporosis Qualifiers: Osteoporosis type: unspecified Presence of current pathological fracture: without current pathological fracture Qualified Code(s): M81.0 - Age-related osteoporosis without current pathological fracture Is this a current diagnosis for this admission?: Yes (13) Sepsis Qualifiers: Sepsis type: sepsis due to unspecified organism Qualified Code(s): A41.9 - Sepsis, unspecified organism Is this a current diagnosis for this admission?: Yes Plan: She continues to be tachycardic (14) UTI (urinary tract infection) Qualifiers: Urinary tract infection type: acute cystitis Hematuria presence: without hematuria Qualified Code(s): N30.00 - Acute cystitis without hematuria Is this a current diagnosis for this admission?: Yes Plan: Culture grew e coli with some resistance - Time Time Spent with patient: 25-34 minutes Total Critical Time (Minutes): 20 Medications reviewed and adjusted accordingly: Yes - Inpatient Certification Based on my medical assessment, after consideration of the patient's comorbidities, presenting symptoms, or acuity I expect that the services needed warrant INPATIENT care.: Yes I certify that my determination is in accordance with my understanding of Medicare's requirements for reasonable and necessary INPATIENT services [42 CFR 412.3e].: Yes Medical Necessity: Need For IV Fluids, Need for IV Antibiotics, Risk of Complication if Not Cared For in Hospital
[2018-03-31] MEDS: AZITHROMYCIN 500 MG in DEXTROSE 5%-WATER 250 ML IV SCH (21:04)
[2018-04-01] MEDS: PIPERACILLIN SODIUM/TAZOBACTAM 2.25 GM in NORMAL SALINE 50 ML IV SCH ×4 (00:49→19:35)
[2018-04-01] MEDS: POTASSI CL 20 MEQ/D5NS 1L 20 MEQ/1,000 ML RTUINJ IV PRN ×2 (00:53→14:23)
[2018-04-01 07:19] LABS: HEMATOCRIT 19.1 % (36.0-47.0); MEAN CORPUSCULAR HEMOGLOBIN 29.7 pg (27.0-33.4); MEAN CORPUSCULAR HGB CONC 33.2 g/dL (32.0-36.0); MEAN CORPUSCULAR VOLUME 89 fl (80-97); RED BLOOD COUNT 2.13 10^6/uL (3.72-5.28)
[2018-04-01 07:46] LABS: ANION GAP 12 (5-19)
[2018-04-01 08:01] LABS: HEMOGLOBIN 6.3 g/dL (12.0-15.5)
[2018-04-01 08:03] LABS: PLATELET COUNT 50 10^3/uL (150-450)
[2018-04-01] MEDS ORDERED: FUROSEMIDE INJ/PF 40 MG/4 ML SDV IV PRN (08:25)
[2018-04-01] MEDS ORDERED: NORMAL SALINE 250 ML IV PRN ×2 (08:25)
[2018-04-01] MEDS ORDERED: ACETAMINOPHEN 325 MG TABLET PO PRN (08:25)
--- NOTE | 2018-04-01 08:33 | RADIOLOGY REPORT (SQ) ---
EXAM DESCRIPTION: CHEST SINGLE VIEW COMPLETED DATE/TIME: 04/01/2018 8:13 am REASON FOR STUDY: Increasing oxygen requirment COMPARISON: 03/29/2018 NUMBER OF VIEWS: One view. TECHNIQUE: Single frontal radiographic image of the chest acquired. LIMITATIONS: None. FINDINGS: LUNGS AND PLEURA: Extensive bilateral consolidation with air bronchograms. Increasing den sity in the right lung. No evidence of cavitation. MEDIASTINUM AND HILAR STRUCTURES: Stable heart size and mediastinal structures. HEART AND VASCULAR STRUCTURES: Stable appearance. BONES: No acute findings. HARDWARE: None in the chest. OTHER: No other significant finding. IMPRESSION: Rehydration versus progressing pneumonia. TECHNICAL DOCUMENTATION: JOB ID: [id number]- All Rights Reserved Reading location - IP/workstation name: [email or web address]
[2018-04-01] MEDS: MORPHINE SULFATE 10 MG/ML INJ IV PRN ×3 (08:53→19:35)
[2018-04-01 08:54] LABS: BLOOD UREA NITROGEN 60 mg/dL (7-20); CARBON DIOXIDE 16 mmol/L (22-30); CHLORIDE 99 mmol/L (98-107); GLUCOSE 83 mg/dL (75-110)
[2018-04-01] MEDS: IPRATROPIUM/ALBUTEROL 0.5-2.5 MG/3 ML AMPUL NEB PRN (08:59)
[2018-04-01 09:06] LABS: POTASSIUM 3.9 mmol/L (3.6-5.0)
--- NOTE | 2018-04-01 09:51 | PDOC PROGRESS REPORT ---
Subjective Progress Note for:: 04/01/18 Subjective:: Patient is seen resting in bed on BiPAP. She has been able to come off BiPAP for short periods of time. Her daughter is at the bedside. Patient is confused and unable to do review of systems. Nursing reports no issues overnight. Chest x-ray this morning continues to show bilateral infiltrates compatible with ARDS. She presently is in sinus rhythm from A. fib. Presently does not follow verbal commands. Reason For Visit: ACUTE HYPOXIC RESPIRATORY FAILURE,PNEUMONIA,ATRIAL Physical Exam Vital Signs: Temp Pulse Resp BP Pulse Ox 98.0 F 67 15 95/54 L 94 04/01/18 07:36 04/01/18 07:36 04/01/18 07:36 04/01/18 07:36 04/01/18 07:36 Intake & Output 03/31/18 04/01/18 04/02/18 06:59 06:59 06:59 Intake Total 1201 1774 Output Total 950 345 Balance 251 1429 Weight 58.1 kg General appearance: PRESENT: no acute distress, thin, well-developed, well- nourished Head exam: PRESENT: atraumatic, normocephalic Eye exam: PRESENT: conjunctiva pink, EOMI, PERRLA. ABSENT: scleral icterus Ear exam: PRESENT: normal external ear exam Mouth exam: PRESENT: moist, tongue midline Neck exam: ABSENT: carotid bruit, JVD, lymphadenopathy, thyromegaly Respiratory exam: PRESENT: crackles, symmetrical, unlabored - bilaterally Cardiovascular exam: PRESENT: +S1, +S2, systolic murmur - 2/6 systolic murmur Pulses: PRESENT: normal dorsalis pedis pul Vascular exam: PRESENT: normal capillary refill GI/Abdominal exam: PRESENT: normal bowel sounds, soft, tenderness - .. ABSENT: distended, guarding, mass, organolmegaly, rebound Rectal exam: PRESENT: deferred Extremities exam: PRESENT: full ROM. ABSENT: calf tenderness, clubbing, pedal edema Musculoskeletal exam: PRESENT: full ROM Neurological exam: PRESENT: altered, CN II-XII grossly intact, aphasic Psychiatric exam: PRESENT: flat affect, normal mood. ABSENT: homicidal ideation , suicidal ideation Skin exam: PRESENT: dry, intact, warm. ABSENT: cyanosis, rash Results Laboratory Results: 04/01/18 06:58 04/01/18 06:58 03/31/18 04/01/18 04/01/18 08:26 05:30 06:58 WBC Cancelled RBC Cancelled Hgb Cancelled Hct Cancelled MCV Cancelled MCH Cancelled MCHC Cancelled RDW Cancelled Plt Count Cancelled Sodium 123.7 L 127.0 L Potassium 2.8 L* 3.9 D Chloride 92 L 99 Carbon Dioxide 20 L 16 L Anion Gap 12 12 BUN 61 H 60 H Creatinine 1.40 H 1.56 H Est GFR ( Amer) 43 L 38 L Est GFR (Non-Af Amer) 35 L 31 L Glucose 87 83 Calcium 7.9 L 8.0 L 04/01/18 06:58 WBC 15.0 H RBC 2.13 L Hgb 6.3 L Hct 19.1 L MCV 89 MCH 29.7 MCHC 33.2 RDW 15.0 H Plt Count 50 L Sodium Potassium Chloride Carbon Dioxide Anion Gap BUN Creatinine Est GFR ( Amer) Est GFR (Non-Af Amer) Glucose Calcium 03/25/18 03/26/18 03/27/18 19:40 03:50 18:30 Troponin I 0.054 0.126 0.238 03/28/18 03/28/18 02:16 10:22 Troponin I 0.225 0.178 Impressions: Head CT 03/27/18 00:00 IMPRESSION: CHRONIC CHANGES OF ATROPHY AND MICROVASCULAR ISCHEMIA. STABLE LYTIC LESIONS IN THE SKULL BASE. 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 NO ACUTE PROCESS. EVIDENCE OF ACUTE STROKE: NO. Chest X-Ray 04/01/18 08:00 IMPRESSION: Rehydration versus progressing pneumonia. Assessment & Plan - Diagnosis (1) Acute respiratory failure with hypoxia Is this a current diagnosis for this admission?: Yes Plan: She has worsening chest x-ray showing bilateral infiltrates. She is presently on 50% FiO2 on BiPAP. She is resting comfortably today on BIPAP. WWhen she is placed on nasal cannula she becomes tachypneic and in moderate respiratory distress. Had a lengthy discussion with her 2 daughters. We discussed the gravity of her situation. Despite broad-spectrum IV antibiotics her chest x- ray has continued to worsen. Now appears to be in ARDS. We discussed the other option of providing comfort measures only, due to her poor quality of life and not likelihood of surviving this. They will give thought to this as well. They appear to be realistic to the situation. They understand with her advanced age and poor health that she may not survive this. They do not want her resuscitated or placed on a ventilator. (2) Atrial fibrillation with rapid ventricular response Is this a current diagnosis for this admission?: Yes Plan: She is presently on IV diltiazem cardiology is following (3) Elevated troponin Is this a current diagnosis for this admission?: Yes Plan: Secondary to demand ischemia type II cardiology is following is not a candidate for any invasive studies (4) Hypoglycemia Is this a current diagnosis for this admission?: Yes Plan: Is presently on D10 and having no further hypoglycemia. (5) Hyponatremia Is this a current diagnosis for this admission?: Yes Plan: Improved (6) Pneumonia Qualifiers: Pneumonia type: aspiration pneumonia Aspiration pneumonia type: unspecified Laterality: bilateral Lung location: lower lobe of lung Qualified Code(s): J69.0 - Pneumonitis due to inhalation of food and vomit Is this a current diagnosis for this admission?: Yes Plan: Most likely begin due to aspiration pneumonia she is on appropriate coverage blood cultures 2 are negative. (7) Pulmonary edema Qualifiers: Chronicity: acute Qualified Code(s): J81.0 - Acute pulmonary edema Is this a current diagnosis for this admission?: Yes Plan: She was diuresed (8) Acute kidney injury Is this a current diagnosis for this admission?: Yes Plan: We will discontinue daily Lasix. BUN and creatinine are elevated. (9) Anemia Qualifiers: Anemia type: iron deficiency Is this a current diagnosis for this admission?: Yes Plan: Patient's hemoglobin is down to 6.3 today. Will transfuse 2 units packed red blood cells, 40 mg Lasix after first dose. We will send anemia studies tomorrow. Guaiac all stools. (10) Altered mental status Qualifiers: Altered mental status type: transient alteration of awareness Qualified Code(s): R40.4 - Transient alteration of awareness Is this a current diagnosis for this admission?: Yes Plan: She has a history of worsening dementia. (11) Deafness Qualifiers: Laterality: bilateral Qualified Code(s): H91.93 - Unspecified hearing loss , bilateral Is this a current diagnosis for this admission?: Yes (12) Encephalopathy acute Is this a current diagnosis for this admission?: Yes Plan: She is not presently at her baseline according to her daughters. (13) Osteoporosis Qualifiers: Osteoporosis type: unspecified Presence of current pathological fracture: without current pathological fracture Qualified Code(s): M81.0 - Age-related osteoporosis without current pathological fracture Is this a current diagnosis for this admission?: Yes (14) Sepsis Qualifiers: Sepsis type: sepsis due to unspecified organism Qualified Code(s): A41.9 - Sepsis, unspecified organism Is this a current diagnosis for this admission?: Yes Plan: She continues to be tachycardic (15) UTI (urinary tract infection) Qualifiers: Urinary tract infection type: acute cystitis Hematuria presence: without hematuria Qualified Code(s): N30.00 - Acute cystitis without hematuria Is this a current diagnosis for this admission?: Yes Plan: Culture grew e coli with some resistance (16) Thrombocytopenia Is this a current diagnosis for this admission?: Yes Plan: We will discontinue Lovenox. - Time Time Spent with patient: 25-34 minutes Total Critical Time (Minutes): 20 Medications reviewed and adjusted accordingly: Yes
[2018-04-01] MEDS: CEFEPIME 1 GM/D5W RTU 1 GM/50 ML RTUPB IV SCH (19:33)
[2018-04-01 20:51] LABS: HEMATOCRIT 29.3 % (36.0-47.0); MEAN CORPUSCULAR HEMOGLOBIN 29.5 pg (27.0-33.4); MEAN CORPUSCULAR HGB CONC 33.2 g/dL (32.0-36.0); MEAN CORPUSCULAR VOLUME 89 fl (80-97); RED BLOOD COUNT 3.29 10^6/uL (3.72-5.28); WHITE BLOOD COUNT 17.3 10^3/uL (4.0-10.5)
[2018-04-01 21:08] LABS: HEMOGLOBIN 9.7 g/dL (12.0-15.5)
[2018-04-01 21:12] LABS: ABSOLUTE LYMPHOCYTES# (MANUAL) 0.2 10^3/uL (0.5-4.7); ABSOLUTE NEUTROPHILS# (MANUAL) 17.1 10^3/uL (1.7-8.2); BASOPHILS % (MANUAL) 0 % (0-2); EOSINOPHILS % (MANUAL) 0 % (0-6); LYMPHOCYTES % (MANUAL) 1 % (13-45); MONOCYTES % (MANUAL) 0 % (3-13); SEGMENTED NEUTROPHILS % (MAN) 99 % (42-78); TOTAL CELLS COUNTED 100
[2018-04-01 21:14] LABS: ANISOCYTOSIS SLIGHT; PLATELET COMMENT DECREASED; POLYCHROMASIA SLIGHT
[2018-04-01 21:15] LABS: PLATELET COUNT 55 10^3/uL (150-450)
[2018-04-02] MEDS: PIPERACILLIN SODIUM/TAZOBACTAM 2.25 GM in NORMAL SALINE 50 ML IV SCH ×4 (00:50→17:19)
[2018-04-02 05:39] LABS: HEMATOCRIT 29.8 % (36.0-47.0); HEMOGLOBIN 10.1 g/dL (12.0-15.5); MEAN CORPUSCULAR HEMOGLOBIN 30.1 pg (27.0-33.4); MEAN CORPUSCULAR HGB CONC 33.9 g/dL (32.0-36.0); MEAN CORPUSCULAR VOLUME 89 fl (80-97); RED BLOOD COUNT 3.36 10^6/uL (3.72-5.28); RED CELL DISTRIBUTION WIDTH 15.4 % (11.5-14.0); WHITE BLOOD COUNT 15.9 10^3/uL (4.0-10.5)
[2018-04-02] MEDS: POTASSI CL 20 MEQ/D5NS 1L 20 MEQ/1,000 ML RTUINJ IV PRN ×2 (05:48→20:44)
[2018-04-02] MEDS: MORPHINE SULFATE 10 MG/ML INJ IV PRN (05:54)
[2018-04-02 05:56] LABS: ALANINE AMINOTRANSFERASE 26 U/L (9-52); ALBUMIN 1.8 g/dL (3.5-5.0); ALKALINE PHOSPHATASE 57 U/L (38-126); ANION GAP 11 (5-19); ASPARTATE AMINO TRANSFERASE 35 U/L (14-36); BILIRUBIN,DIRECT 0.9 mg/dL (0.0-0.4); BILIRUBIN,TOTAL 1.1 mg/dL (0.2-1.3); BLOOD UREA NITROGEN 63 mg/dL (7-20); CALCIUM 8.3 mg/dL (8.4-10.2); CARBON DIOXIDE 15 mmol/L (22-30); CHLORIDE 106 mmol/L (98-107); GLUCOSE 65 mg/dL (75-110); POTASSIUM 4.6 mmol/L (3.6-5.0); SODIUM 132.1 mmol/L (137-145); TOTAL PROTEIN 4.3 g/dL (6.3-8.2)
[2018-04-02 06:27] LABS: PLATELET COUNT 46 10^3/uL (150-450)
[2018-04-02 06:34] LABS: ABSOLUTE LYMPHOCYTES# (MANUAL) 0.3 10^3/uL (0.5-4.7); ABSOLUTE MONOCYTES # (MANUAL) 0.2 10^3/uL (0.1-1.4); ABSOLUTE NEUTROPHILS# (MANUAL) 15.3 10^3/uL (1.7-8.2); BAND NEUTROPHILS % (MANUAL) 1 % (3-5); BASOPHILS % (MANUAL) 0 % (0-2); EOSINOPHILS % (MANUAL) 1 % (0-6); LYMPHOCYTES % (MANUAL) 2 % (13-45); MONOCYTES % (MANUAL) 1 % (3-13); SEGMENTED NEUTROPHILS % (MAN) 95 % (42-78); TOTAL CELLS COUNTED 100
[2018-04-02 06:35] LABS: ACANTHOCYTES SLIGHT; ANISOCYTOSIS SLIGHT; BURR CELLS 3+; PLATELET COMMENT DECREASED; POIKILOCYTOSIS 3+; POLYCHROMASIA SLIGHT
--- NOTE | 2018-04-02 14:08 | PDOC PROGRESS REPORT ---
Subjective Progress Note for:: 04/02/18 Subjective:: Patient is laying in bed currently on BiPAP. Her daughters are at bedside. Patient unable to provide any significant information. Family would like to discuss further plans and so I have scheduled meet up for tomorrow. Reason For Visit: ACUTE HYPOXIC RESPIRATORY FAILURE,PNEUMONIA,ATRIAL Physical Exam Vital Signs: Temp Pulse Resp BP Pulse Ox 97.3 F 71 19 92/42 L 95 04/02/18 07:36 04/02/18 12:43 04/02/18 12:43 04/02/18 12:43 04/02/18 13:08 Intake & Output 04/01/18 04/02/18 04/03/18 06:59 06:59 06:59 Intake Total 1774 3375 50 Output Total 345 115 Balance 1429 3260 50 Weight 56.2 kg General appearance: PRESENT: no acute distress, hard of hearing Head exam: PRESENT: atraumatic, normocephalic Ear exam: PRESENT: normal external ear exam Mouth exam: PRESENT: moist Neck exam: ABSENT: carotid bruit, JVD, lymphadenopathy, thyromegaly Respiratory exam: PRESENT: crackles, decreased breath sounds. ABSENT: rales, rhonchi, wheezes Cardiovascular exam: PRESENT: RRR. ABSENT: diastolic murmur, rubs, systolic murmur Vascular exam: PRESENT: normal capillary refill GI/Abdominal exam: PRESENT: normal bowel sounds, soft. ABSENT: distended, guarding, mass, organolmegaly, rebound, tenderness Rectal exam: PRESENT: deferred Extremities exam: ABSENT: calf tenderness, clubbing, pedal edema Neurological exam: PRESENT: alert. ABSENT: motor sensory deficit Psychiatric exam: ABSENT: homicidal ideation, suicidal ideation Skin exam: PRESENT: intact, warm. ABSENT: cyanosis, rash Results Laboratory Results: 04/02/18 04:54 04/02/18 04:54 04/01/18 04/01/18 04/02/18 08:43 20:27 04:54 WBC 17.3 H 15.9 H RBC 3.29 L 3.36 L Hgb 9.7 L D 10.1 L Hct 29.3 L 29.8 L MCV 89 89 MCH 29.5 30.1 MCHC 33.2 33.9 RDW 15.0 H 15.4 H Plt Count 55 L 46 L Seg Neutrophils % Not Reportable Not Reportable Lymphocytes % Not Reportable Not Reportable Monocytes % Not Reportable Not Reportable Eosinophils % Not Reportable Not Reportable Basophils % Not Reportable Not Reportable Absolute Neutrophils Not Reportable Not Reportable Absolute Lymphocytes Not Reportable Not Reportable Absolute Monocytes Not Reportable Not Reportable Absolute Eosinophils Not Reportable Not Reportable Absolute Basophils Not Reportable Not Reportable Sodium Potassium Chloride Carbon Dioxide Anion Gap BUN Creatinine Est GFR ( Amer) Est GFR (Non-Af Amer) Glucose Calcium Total Bilirubin AST ALT Alkaline Phosphatase Total Protein Albumin Blood Type A POSITIVE Antibody Screen NEGATIVE 04/02/18 04:54 WBC RBC Hgb Hct MCV MCH MCHC RDW Plt Count Seg Neutrophils % Lymphocytes % Monocytes % Eosinophils % Basophils % Absolute Neutrophils Absolute Lymphocytes Absolute Monocytes Absolute Eosinophils Absolute Basophils Sodium 132.1 L Potassium 4.6 Chloride 106 Carbon Dioxide 15 L Anion Gap 11 BUN 63 H Creatinine 1.86 H Est GFR ( Amer) 31 L Est GFR (Non-Af Amer) 26 L Glucose 65 L Calcium 8.3 L Total Bilirubin 1.1 AST 35 ALT 26 Alkaline Phosphatase 57 Total Protein 4.3 L Albumin 1.8 L Blood Type Antibody Screen 03/28/18 09:00 Tracheal Aspirate Gram Stain - Final 03/28/18 09:00 Tracheal Aspirate Sputum Culture - Final Corynebacterium Striatum Reduced Normal Annmarie 03/25/18 03/26/18 03/27/18 19:40 03:50 18:30 Troponin I 0.054 0.126 0.238 03/28/18 03/28/18 02:16 10:22 Troponin I 0.225 0.178 Impressions: Head CT 03/27/18 00:00 IMPRESSION: CHRONIC CHANGES OF ATROPHY AND MICROVASCULAR ISCHEMIA. STABLE LYTIC LESIONS IN THE SKULL BASE. 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 NO ACUTE PROCESS. EVIDENCE OF ACUTE STROKE: NO. Chest X-Ray 04/01/18 08:00 IMPRESSION: Rehydration versus progressing pneumonia. Assessment & Plan - Time Time Spent with patient: 15-24 minutes Medications reviewed and adjusted accordingly: Yes Within: within 72 hours - Inpatient Certification Based on my medical assessment, after consideration of the patient's comorbidities, presenting symptoms, or acuity I expect that the services needed warrant INPATIENT care.: Yes Medical Necessity: Risk of Complication if Not Cared For in Hospital - Plan Summary Plan Summary: P Acute hypoxemic respiratory failure which apparently has been getting worse since admission. She had been treated with broad-spectrum IV antibiotics empirically with minimal improvement in. It appears comfort measures at been discussed with the family and I believe this may be part of the questions for me tomorrow. Patient is currently DO NOT RESUSCITATE 2. Atrial fibrillation with a rapid ventricular response currently on IV diltiazem 3. Elevated troponin secondary to demand ischemia no acute intervention planned 4. Hypoglycemia patient is currently maintained on D10 5. Hyponatremia #6 pneumonia, aspiration bilateral lungs 7. Sepsis 8. Urinary tract infection secondary to E. coli 9. Thrombocytopenia likely secondary to acute infection she is off anticoagulant 10. Acute encephalopathy secondary to acute infection 11. Acute kidney injury likely multifactorial 12. Anemia status post 2 units packed red blood cell transfusion 13. Deafness
[2018-04-02] MEDS: IPRATROPIUM/ALBUTEROL 0.5-2.5 MG/3 ML AMPUL NEB PRN (17:12)
[2018-04-03] MEDS: PIPERACILLIN SODIUM/TAZOBACTAM 2.25 GM in NORMAL SALINE 50 ML IV SCH ×2 (01:15→05:22)
[2018-04-03 04:44] LABS: HEMATOCRIT 30.2 % (36.0-47.0); HEMOGLOBIN 10.2 g/dL (12.0-15.5); MEAN CORPUSCULAR HGB CONC 33.8 g/dL (32.0-36.0); MEAN CORPUSCULAR VOLUME 89 fl (80-97); RED BLOOD COUNT 3.39 10^6/uL (3.72-5.28); WHITE BLOOD COUNT 16.1 10^3/uL (4.0-10.5)
[2018-04-03 04:50] LABS: PLATELET COUNT 36 10^3/uL (150-450)
[2018-04-03] MEDS: MORPHINE SULFATE 10 MG/ML INJ IV PRN (06:55)
[2018-04-03 08:33] VITALS: BP 95/45
[2018-04-03] MEDS ORDERED: MORPHINE SULFATE 10 MG/ML INJ IV PRN (10:25)
[2018-04-03] MEDS ORDERED: LORAZEPAM INJ 2 MG/1 ML VIAL IV PRN (10:27)
[2018-04-03] MEDS ORDERED: SCOPOLAMINE HYDROBROMIDE 1.5 MG PATCH.TD72 TD PRN (11:00)
--- NOTE | 2018-04-03 16:53 | PDOC PROGRESS REPORT ---
Subjective Progress Note for:: 04/03/18 Subjective:: Patient is laying in bed currently on BiPAP. Her daughters are at bedside. Patient unable to provide any significant information. I did discuss with the both daughters today. They are in agreement to change patient to comfort care Reason For Visit: ACUTE HYPOXIC RESPIRATORY FAILURE,PNEUMONIA,ATRIAL Physical Exam Vital Signs: Temp Pulse Resp BP Pulse Ox 97.6 F 71 15 95/45 L 97 04/03/18 03:55 04/03/18 14:00 04/03/18 13:05 04/03/18 08:16 04/03/18 08:40 Intake & Output 04/02/18 04/03/18 04/04/18 06:59 06:59 06:59 Intake Total 3375 2150 Output Total 115 205 Balance 3260 1945 Weight 56.2 kg 55.4 kg General appearance: PRESENT: no acute distress - Poorly responsive Head exam: PRESENT: atraumatic Eye exam: ABSENT: PERRLA Respiratory exam: PRESENT: decreased breath sounds, unlabored Cardiovascular exam: PRESENT: +S1, +S2 GI/Abdominal exam: PRESENT: soft Rectal exam: PRESENT: deferred Extremities exam: ABSENT: calf tenderness Neurological exam: PRESENT: other - Responses to pain Results Laboratory Results: 04/03/18 04:31 04/02/18 04:54 04/03/18 04:31 WBC 16.1 H RBC 3.39 L Hgb 10.2 L Hct 30.2 L MCV 89 MCH 30.0 MCHC 33.8 RDW 16.0 H Plt Count 36 L 03/25/18 03/26/18 03/27/18 19:40 03:50 18:30 Troponin I 0.054 0.126 0.238 03/28/18 03/28/18 02:16 10:22 Troponin I 0.225 0.178 Impressions: Head CT 03/27/18 00:00 IMPRESSION: CHRONIC CHANGES OF ATROPHY AND MICROVASCULAR ISCHEMIA. STABLE LYTIC LESIONS IN THE SKULL BASE. 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 NO ACUTE PROCESS. EVIDENCE OF ACUTE STROKE: NO. Chest X-Ray 04/01/18 08:00 IMPRESSION: Rehydration versus progressing pneumonia. Assessment & Plan - Time Time Spent with patient: 25-34 minutes Medications reviewed and adjusted accordingly: Yes Anticipated discharge: Hospice Within: within 72 hours - Inpatient Certification Based on my medical assessment, after consideration of the patient's comorbidities, presenting symptoms, or acuity I expect that the services needed warrant INPATIENT care.: Yes Medical Necessity: Need for Pain Control - Plan Summary Plan Summary: Acute hypoxemic respiratory failure which apparently has been getting worse since admission. She had been treated with broad-spectrum IV antibiotics empirically with minimal improvement. After my discussion with the today patient has been changed to comfort care with their consent and understanding that all active treatment including IV fluids to be discontinued. I have also talked to social service and a hospice care consult will be placed 2. Atrial fibrillation with a rapid ventricular response 3. Elevated troponin secondary to demand ischemia no acute intervention planned 4. Hypoglycemia 5. Hyponatremia #6 pneumonia, aspiration bilateral lungs 7. Sepsis 8. Urinary tract infection secondary to E. coli 9. Thrombocytopenia likely secondary to acute infection 10. Acute encephalopathy secondary to acute infection 11. Acute kidney injury likely multifactorial 12. Anemia status post 2 units packed red blood cell transfusion 13. Deafness 14. Patient is a DO NOT RESUSCITATE with comfort care
--- NOTE | 2018-04-03 18:46 | Death Summary ---
Summary Date : 04/03/18 Time of :: 18:25 Autopsy: No Resuscitation Status: Comfort Measures Only Primary Care Provider: Nahum Royal - Final Diagnosis (1) Sepsis Is this a current diagnosis for this admission?: Yes (2) Acute respiratory failure with hypoxia Is this a current diagnosis for this admission?: Yes (3) Anemia Is this a current diagnosis for this admission?: Yes (4) Atrial fibrillation with rapid ventricular response Is this a current diagnosis for this admission?: Yes (5) Elevated troponin Is this a current diagnosis for this admission?: Yes (6) Pneumonia Is this a current diagnosis for this admission?: Yes (7) UTI (urinary tract infection) Is this a current diagnosis for this admission?: Yes (8) Pulmonary edema Is this a current diagnosis for this admission?: Yes (9) Encephalopathy acute Is this a current diagnosis for this admission?: Yes Hospital Course:: Patient was admitted with difficulty breathing and shortness of breath. She was found to have pneumonia pneumonia with progressive respiratory failure. She was placed on BiPAP and treated with empiric broad-spectrum antibiotics with failure to 2 minimal improvement. She was found to have been atrial fibrillation with a rapid ventricular response thought to be likely related to the acute infection and was treated with Cardizem drip. She also had elevated troponin which was felt to be secondary to demand ischemia. She was treated for aspiration pneumonia as well as a urinary tract infection secondary to E. coli. Patient however had overwhelming sepsis and she continued to deteriorate. Discussion was held with the family over the course of admission and today they decided to make her comfort care with withdrawal of all active treatment. Patient a few hours after treatment was withdrawn with family at bedside.
== END 2018-04-03 18:30 | DRG 871 ==
LOC: ER 15:33 → EH 17:40 → ICU 20:55 → 3W 03-30 04:33
PROVIDERS: ADMIT Internal Medicine; ATTEND Internal Medicine
PROC: 5A09557 Assistance with Respiratory Ventilation, Greater than 96 Consecutive Hours, Continuous Positive Airway Pressure (ICD-10-PCS; 2018-03-25)
PROC: 30233N1 Transfusion of Nonautologous Red Blood Cells into Peripheral Vein, Percutaneous Approach (ICD-10-PCS; principal; 2018-04-01)
DX: A41.9 Sepsis, unspecified organism (principal); J96.01 Acute respiratory failure with hypoxia; G93.41 Metabolic encephalopathy; J69.0 Pneumonitis due to inhalation of food and vomit; J81.0 Acute pulmonary edema; N30.00 Acute cystitis without hematuria; N17.9 Acute kidney failure, unspecified; E87.1 Hypo-osmolality and hyponatremia; I48.91 Unspecified atrial fibrillation; B96.20 Unspecified Escherichia coli [E. coli] as the cause of diseases classified elsewhere; Z51.5 Encounter for palliative care; M35.9 Systemic involvement of connective tissue, unspecified; R13.10 Dysphagia, unspecified; Z66 Do not resuscitate; H91.93 Unspecified hearing loss, bilateral; M81.0 Age-related osteoporosis without current pathological fracture; E16.2 Hypoglycemia, unspecified; R74.8 Abnormal levels of other serum enzymes; E87.70 Fluid overload, unspecified; D50.9 Iron deficiency anemia, unspecified; D69.6 Thrombocytopenia, unspecified; M19.90 Unspecified osteoarthritis, unspecified site; Z82.49 Family history of ischemic heart disease and other diseases of the circulatory system; Z90.49 Acquired absence of other specified parts of digestive tract; Z79.899 Other long term (current) drug therapy; Z88.2 Allergy status to sulfonamides; Z88.8 Allergy status to other drugs, medicaments and biological substances
CPT/HCPCS: 36415; 36430; 36600; 51702; 70450; 71045; 80048; 80053; 81001; 82803; 82962; 83605; 83735; 84132; 84484; 85025; 85027; 85610; 86850; 86900; 86901; 86920; 87040; 87070; 87077; 87086; 87088; 87186; 87205; 93005; 93010; 94640; 94660; 96361; 96365; 96375; 99285; J0295; J0456; J0692; J1160; J1630; J1650; J1940; J2270; J2543; J3480; J3486; J3490; J7030; J7060; J7620; P9016